=== PATIENT | female | born 1940 | race Caucasian/White ===

== ENCOUNTER 2016-10-20 16:24 | Emergency (ER) | payer OTHER, MEDICAID ==
[~2016-10-20] VITALS: Ht 154.9 cm; Wt 72.6 kg
[~2016-10-20 16:24] MED LIST: /CARB20TAB PO; /DULO30CA PO; /FENO48TA PO; AMLO2.5T PO; AMLO25TA PO; AMLO5TAB2 PO; AMOX500T2 PO; ASPI1TAB PO; ASPI81TA83 OR; ASPI81TA85 PO; BACTDSTA PO; CALC600T7 PO; CALCCAP4 PO; CALCCHW12 OR; CARB1TAB20 PO; CIPR500T3 PO; CIPR500T89 PO; CO Q-10 PO; COQ-1CAP PO; CRES5TAB OR; Co Q 10 OR; FISH1000 PO; FLAG500T PO; FORT600S SC; GABA-279 PO; GABA100C PO; HYDR25TA6 OR; LISI20TA5 OR; LISI20TA5 PO; NIAC500T4 PO; NIAC500T42 PO; NIAC500T5 PO; NORC5TAB PO; NORCOTAB PO; OMEP20CA3 PO; PLAV75TA2 PO; PLAV75TA38 PO; PRAV10TA PO; PROL60SO SC; SENO8.6T10 PO; TYLE650T25 PO; TYLENOL #3 PO; VITA-122 PO; VITA20008 PO; VITACAP31 PO; VITAMIN D 3 PO; ZETI10TA2 PO; potassium chloride PO; prolia; vitamin D3 OR
[2016-10-20 16:43] VITALS: BP 152/79
[2016-10-20] MEDS ORDERED: SPIR25TA2 PO (16:52)
[2016-10-20] MEDS ORDERED: CO Q100C10 PO (16:54)
[2016-10-20] MEDS ORDERED: TETANUS/DIPHTHERIA TOX ADSORB ADULT 0.5ML SYR/VIAL (90714) IM ONE (17:00)
[2016-10-20] MEDS ORDERED: LIDOCAINE 1% MDV 20ML VIAL SC ONE (17:30)
[2016-10-20] MEDS ORDERED: MORPHINE 2 MG/ML 1ML SYRINGE IV ONE (17:30)
--- NOTE | 2016-10-20 17:50 | REP ---
LEFT WRIST: Four views of the left wrist were performed. There is a comminuted intraarticular fracture of the distal end of the radius with dorsal angulation. No other acute fracture or dislocation is seen. IMPRESSION: Comminuted intraarticular fracture, distal end of the radius with dorsal angulation. Signed by Cortes Caballero MD 10/20/2016 08:38 P
--- NOTE | 2016-10-20 17:51 | REP ---
CT BRAIN WITHOUT IV CONTRAST: CT brain is performed without IV contrast. There is mild atrophy. There is no midline shift. No abnormal densities are seen. Caballero/white differentiation is well maintained. There is no acute hemorrhage. There is no extra-axial fluid collection. There is no evidence of skull fracture. There are vascular calcifications in the region of the carotid siphons. IMPRESSION: No acute intracranial hemorrhage or skull fracture. Signed by Cortes Caballero MD 10/20/2016 08:38 P
--- NOTE | 2016-10-20 17:59 | REP ---
CT CERVICAL SPINE WITHOUT IV CONTRAST: CT cervical spine is performed in the axial plane with sagittal and coronal reconstruction images. There is no compression fracture or malalignment with normal cervical lordosis. There is no prevertebral soft tissue swelling. There is moderate spurring of C5. There is mild to moderate disc space narrowing and subchondral sclerosis at C5-6. No hematoma is seen in the spinal canal. There is curvature convex to the right. IMPRESSION: Degenerative changes without fracture or dislocation. Signed by Cortes Caballero MD 10/20/2016 08:38 P
--- NOTE | 2016-10-20 18:10 | REP ---
CT MAXILLOFACIAL BONES: CT maxillofacial bones is performed in the axial plane with sagittal and coronal reconstruction images. There is no evidence of fracture of the visualized maxillofacial bones. Mastoid air cells are well aerated with no abnormal opacification. Paranasal sinuses demonstrate no significant abnormal opacification. No air fluid levels are seen. Vascular calcifications are seen in the carotid siphons. The globes appear intact. IMPRESSION: No evidence of maxillofacial bone fracture. Signed by Cortes Caballero MD 10/20/2016 08:38 P
--- NOTE | 2016-10-20 18:39 | REP ---
RIGHT KNEE, FIVE VIEWS: There is no evidence of an acute fracture, dislocation or intrinsic bone disease. There is soft-tissue edema lateral to the patella on the sunrise view. IMPRESSION: No fracture or dislocation. Signed by Cortes Caballero MD 10/20/2016 08:38 P
--- NOTE | 2016-10-20 18:41 | REP ---
LEFT FOREARM: AP and lateral views of the left forearm are performed. There is a comminuted intrarticular fracture of the distal end of the radius with dorsal angulation. No other fracture or dislocation is seen. IMPRESSION: Comminuted intraarticular fracture distal end of the radius with dorsal angulation. Signed by Cortes Caballero MD 10/20/2016 08:38 P
--- NOTE | 2016-10-20 18:56 | REP ---
LEFT WRIST: Four views of the left wrist are performed. Comminuted intraarticular fracture of the distal radius is again noted. The fracture is well aligned with reduction of the previously noted dorsal angulation. Overlying splint obscures underlying osseous detail. Signed by Cortes Caballero MD 10/20/2016 08:39 P
--- NOTE | 2016-10-21 08:47 | CR ---
DATE OF CONSULTATION: 10/20/2016 REASON FOR CONSULTATION: Left distal radius fracture. CHIEF COMPLAINT: Left wrist pain. HISTORY OF PRESENT ILLNESS: Yen Spence is a 76-year-old ctdap-eafd-dwkrolam female who sustained a ground-level fall onto her left upper extremity, resulting in immediate pain and deformity about the left wrist. She presented to the emergency department for evaluation. She also had a head laceration. She had a head CT that was negative for an intracranial bleed. The patient reported wrist pain and some mild knee pain on the right side. She had no other pain. She denied any numbness, tingling, or burning sensations about her left upper extremity and had no other complaints. PAST MEDICAL HISTORY: Significant for: 1. Hypertension. 2. Osteoporosis. 3. Hypercholesterolemia. MEDICATIONS: - amlodipine - Plavix - carbamazepine - spironolactone - Zetia - aspirin - coenzyme Q10 - calcium and vitamin D supplementation - fish oil supplementation - niacin - vitamin D3 ALLERGIES: To STATINS. PAST SURGICAL HISTORY: The patient has had: 1. Liver surgery. 2. Cataracts. 3. Hysterectomy. FAMILY HISTORY: Is noncontributory. SOCIAL HISTORY: The patient lives here in [place]. She does not smoke. She drinks socially. REVIEW OF SYSTEMS: CONSTITUTIONAL: No fevers, chills, or night sweats. CARDIOVASCULAR: No chest pain or palpitations. RESPIRATORY: No cough, wheeze, or shortness of breath. NEUROLOGIC: No headache, dizziness, numbness, tingling, or burning sensations. ENDOCRINE: No heat or cold intolerance. GASTROINTESTINAL (GI): No nausea, vomiting, or diarrhea. PHYSICAL EXAMINATION: VITAL SIGNS: Temperature 98.8, heart rate 85, blood pressure 152/79, respiratory rate 18, oxygen (O2) saturation 95% on room air. GENERAL: This is a well-nourished female. Appears her stated age. No acute distress. NEUROLOGIC: She is awake, alert, and oriented to person, place, and time. She has intact sensory and motor function in her left upper extremity, radial, median, and ulnar anterior interosseous nerve (AIN) and posterior interosseous nerve (pin) distributions. CARDIOVASCULAR: She has a 2+ radial pulse and brisk capillary refill to all digits of the left upper extremity. MUSCULOSKELETAL: LUE: A focused physical examination of the left wrist demonstrates obvious deformity about the left wrist with apex volar angulation of the left distal radius. She has painless range of motion about all digits of the metacarpophalangeal (MCP), proximal interphalangeal (PIP), and distal interphalangeal (DIP) joints. She has intact sensation to light touch distally about all of her fingers. Lower extremity: Examination of the lower extremities demonstrates no hip pain with a log roll bilaterally. There is ecchymosis about the medial aspect of the right knee. Right knee has a stable ligamentous examination. She has full active knee range of motion from 0-120 degrees. RADIOGRAPHS: Plain radiographs of the left radius, forearm, and right knee were reviewed. Left wrist and forearm views demonstrate a comminuted displaced intraarticular distal radius fracture with apex volar angulation. The right knee demonstrates no acute osseous abnormalities. ASSESSMENT: This is a 76-year-old female with a left closed distal radius fracture and a right knee contusion. PLAN: I discussed with the patient the risks, benefits, indications, and alternatives of closed reduction versus acute ORIF were discussed. Given the patient's age and degree of displacement, this is an unstable fracture pattern that will likely redisplace after reduction. However, it is worthwhile in my opinion to attempt a closed reduction with splinting to potentially avoid the necessity for ORIF. Procedure note: The patient provided a verbal informed consent to a closed reduction of the left wrist under hematoma block. Approximately 4 mL of 1% lidocaine without epinehrine was injected into the left wrist fracture hematoma. Patient was placed in finger traction and a closed reduction was obtained using mini c-arm fluoroscopic guidance. A well padded sugar tong splint was applied. Post reduction radiographs were reviewed demonstrating sabianism of anatomic radial height and inclination, with sabianism of tilt to neutral. I counseled her to followup in 1 week for a repeat radiograph in her splint. Patient counseled that the knee contusion will be self limiting and no bony or ligamentous damage was identified. The patient expressed understanding and agreed with the plan. All questions were answered. PATRICIA
== END 2016-10-20 20:12 | disposition home or self-care (01) ==
LOC: EDBD 16:24 → M ED 19:29
DX: S52.572A Other intraarticular fracture of lower end of left radius, initial encounter for closed fracture (principal); S80.01XA Contusion of right knee, initial encounter; S01.81XA Laceration without foreign body of other part of head, initial encounter; W01.198A Fall on same level from slipping, tripping and stumbling with subsequent striking against other object, initial encounter; Y92.89 Other specified places as the place of occurrence of the external cause; Y93.89 Activity, other specified; Y99.8 Other external cause status; I10 Essential (primary) hypertension; M81.0 Age-related osteoporosis without current pathological fracture; E78.00 Pure hypercholesterolemia, unspecified; Z79.899 Other long term (current) drug therapy; Z79.02 Long term (current) use of antithrombotics/antiplatelets; Z79.82 Long term (current) use of aspirin; Z79.2 Long term (current) use of antibiotics; Z88.8 Allergy status to other drugs, medicaments and biological substances

== ENCOUNTER 2019-06-16 06:37 | Inpatient (IN) | payer MEDICARE, MEDICAID ==
[~2019-06-16 06:37] MED LIST changes: -/CARB20TAB PO; -/DULO30CA PO; -/FENO48TA PO; -AMLO5TAB2 PO; +AMLO5TAB6 PO; -ASPI1TAB PO; +ASPI81TA26 PO; -BACTDSTA PO; +CIPR-249 PO; -CIPR500T89 PO; +CO Q100C10 PO; +CYMB1CAP5 PO; +GABA-1171 PO; -GABA-279 PO; +HYDR-3715 PO; +NORC1TAB7 PO; -NORC5TAB PO; -NORCOTAB PO; +PLAV1TAB2 PO; -PLAV75TA38 PO; -PRAV10TA PO; +PRAV10TA4 PO; +SPIR-10 PO; +SULF1TAB23 PO; +TRIC1TAB PO; +ZETI10TA16 PO; -ZETI10TA2 PO
[2019-06-16] MEDS ORDERED: SPIRONOLACTONE 25 MG TAB PO STA (06:50)
[2019-06-16] MEDS ORDERED: amLODIPine 5 MG TAB PO ONE (07:00)
[2019-06-16 07:16] LABS: INR 0.91; PROTHROMBIN TIME 11.9 SECONDS (11.8-14.0)
--- NOTE | 2019-06-16 07:21 | REPVR ---
PROCEDURE INFORMATION: Exam: CT Head Without Contrast Exam date and time: 06/16/2019 6:49 AM Clinical history: 79 years old, female; Other: left sided facial pain; Additional Info: CVA - Nursing interventions must not delay CT TECHNIQUE: Imaging protocol: Computed tomography of the head without contrast. Radiation optimization: All CT scans at this facility use at least one of these dose optimization techniques: automated exposure control; mA and/or kV adjustment per patient size (includes targeted exams where dose is matched to clinical indication); or iterative reconstruction. Other technique: STROKE PROTOCOL was implemented. COMPARISON: CT Head without contrast 10/20/2016 5:10 PM FINDINGS: Brain: No hemorrhage. No significant white matter disease. No edema. Cortical bang-white matter differentiation is preserved. 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 Insular cortex is not well seen, however, this appears to be symmetric and unchanged from prior. Ventricles: Normal. No ventriculomegaly. Bones/joints: Unremarkable. No acute fracture. Sinuses: Visualized sinuses are unremarkable. No fluid levels. Mastoid air cells: Visualized mastoid air cells are well aerated. Soft tissues: Unremarkable. IMPRESSION: 1. No cerebral changes of acute infarct on non-contrast CT at this time. 2. 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 Unchanged from prior. ASSESSMENT: ASPECTS ([place] Stroke Program Early CT Score) is 10. Electronically signed by: Ceci Esteban On 06/16/2019 07:20:52 AM
[2019-06-16 07:33] LABS: BASO % 0.4 % (0.0-1.0); EOS # 0.1 10^3/uL (0.0-0.5); EOS % 1.2 % (0.0-3.0); HEMATOCRIT 42.8 % (36.0-47.0); HEMOGLOBIN 14.2 g/dl (12.0-15.5); LYMPH # 0.7 10^3/uL (1.5-5.0); LYMPH % 8.7 % (24.0-44.0); MEAN CORPUSCULAR HEMOGLOBIN 31.1 pg (27.0-33.0); MEAN CORPUSCULAR HGB CONC 33.2 g/dl (32.0-36.5); MEAN CORPUSCULAR VOLUME 93.7 fl (80.0-96.0); MONO # 0.4 10^3/uL (0.0-0.8); MONO % 5.1 % (0.0-5.0); NEUTROPHILS # 6.4 10^3/uL (1.5-8.5); NEUTROPHILS % 84.2 % (36.0-66.0); PLATELET COUNT, AUTOMATED 211 10^3/uL (150-450); RED BLOOD COUNT 4.57 10^6/uL (4.00-5.40); WHITE BLOOD COUNT 7.6 10^3/uL (4.0-10.0)
[2019-06-16 07:36] LABS: BLOOD UREA NITROGEN 16 MG/DL (7-18); CALCIUM LEVEL 8.9 MG/DL (8.8-10.2); CARBON DIOXIDE LEVEL 29 MEQ/L (21-32); CHLORIDE LEVEL 106 MEQ/L (98-107); CK-MB VALUE MASS < 1.0 NG/ML (<3.6); CPK CREATINE PHOSPHOKINASE 60 U/L (26-192); CREATININE FOR GFR 1.17 MG/DL (0.55-1.30); GLOMERULAR FILTRATION RATE 47.3 (>32); GLUCOSE, FASTING 99 MG/DL (70-100); MB/CK RELATIVE INDEX 1.67 (< OR =4); POTASSIUM SERUM 4.5 MEQ/L (3.5-5.1); SODIUM LEVEL 141 MEQ/L (136-145); TROPONIN I < 0.02 NG/ML (< 0.10)
[2019-06-16] MEDS ORDERED: AMLO25TA PO (07:49)
[2019-06-16] MEDS ORDERED: FISH1000 PO (07:49)
[2019-06-16] MEDS ORDERED: PHILCAP4 PO (07:50)
--- NOTE | 2019-06-16 08:59 | REP ---
MRI brain: 06/16/2019. Indication: Stroke. Comparison: New new 04/21/2012. Technique: Multiplanar short and long TR sequences of the brain were performed without IV Gadolinium. Findings: No significant areas of restricted diffusion are present. There is no intracranial mass effect or hydrocephalous. Punctate areas of decreased gradient signal are present within the anterior superior left frontal region most consistent with chronic blood products or calcifications. There are a few scattered foci of elevated CT signal throughout the cerebral hemisphere white matter. Small focus of elevated CT signal is again noted within the left occipital calvarium most consistent with a small hemangioma. Stable. Impression: No acute intracranial process. Sequelae of chronic microangiopathic ischemic disease. Anterior superior left frontal region chronic blood products or calcifications. Electronically Signed by Marvin Suazo DO 06/16/2019 08:50 A
[2019-06-16] MEDS ORDERED: SPIRONOLACTONE 25 MG TAB PO SCH (09:00)
--- NOTE | 2019-06-16 09:08 | REP ---
Intracranial MRA: 06/16/2019. Indication: Stroke. Comparison: New 04/21/2012. Technique: 3-D [id number]-[id number] imaging of the intracranial circulation were performed. Findings: There is no intracranial high-grade stenosis, vessel occlusion, aneurysm or AVM. New Impression: No high-grade stenosis or vessel occlusion. Electronically Signed by Marvin Suazo DO 06/16/2019 09:00 A
--- NOTE | 2019-06-16 11:12 | HPEPDOC ---
[facility] Medical History & Physical Date of Admission Jun 16, 2019 Date of Service: Jun 16, 2019 Attending Physician: ELLIS ASTORGA MD History and Physical CHIEF COMPLAINT: Right arm tremor, left arm numbness and tingling HISTORY OF PRESENT ILLNESS: 79-year-old female with past medical history of h ypertension, TIA, hyperlipidemia, presents from home with symptoms concerning for TIA/stroke. She reports waking up without any symptoms, but developed right arm tremor and left arm numbness/tingling shortly after, symptoms lasted for about an hour and a half and resolved prior to her arrival into the emergency room. She has remained symptom free since, currently resting in bed without any complaints, CT head in the ED was negative for any acute stroke. She underwent MRI and MRA in the ED as well, negative for acute stroke as well. She is already taking aspirin and Plavix at home, unsure why, reportedly for her heart, denies having an IL or stent placement in the past. She reports previous TIA about 3 years ago. She denies any headache, vision changes, shortness of breath, chest pain, diarrhea and abdominal pain at this time. 10 point review of system was negative except for above PAST MEDICAL HISTORY: 1. Hypertension. 2., Hyperlipidemia. 3. TIA. 4. Cervical cancer, liver metastases. PAST SURGICAL HISTORY: 1. Hysterectomy. 2. oophorectomy. 3. Hernia repair. SOCIAL HISTORY: Ex-smoker, quit 40-50 years ago. Denies alcohol use. Denies drug use FAMILY HISTORY: No family history of malignancy ALLERGIES: Please see below. HOME MEDICATIONS: Please see below. PHYSICAL EXAMINATION: VITAL SIGNS: Please see below. GENERAL: No distress, frail HEENT: Normocephalic, atraumatic, moist mucous membranes NECK: Supple CARDIOVASCULAR EXAMINATION: S1, S2, no murmurs RESPIRATORY EXAMINATION: Clear to auscultation, no wheezing ABDOMINAL EXAMINATION: Soft, nontender, nondistended, positive bowel sounds EXTREMITIES: Range of motion intact SKIN: No rash NEUROLOGICAL EXAMINATION: Alert and oriented 3, no focal deficits PSYCHIATRIC EXAMINATION: Calm and cooperative LABORATORY DATA: See below. IMAGING: CT and MRI negative for acute stroke MICROBIOLOGY: Please see below. ASSESSMENT: 79-year-old female with past medical history of TIA, hypertension, hyperlipidemia is being admitted for TIA.. . PLAN: 1. TIA. CT and MRI negative for acute stroke, MRA head is negative, TTE and carotid Dopplers pending. Continue aspirin, Plavix and Zetia PT/OT eval 2. Hypertension. Continue Norvasc and spironolactone 3. Hyperlipidemia. Continue Zetia 4. Cervical cancer. Along with liver metastasis. Status post hysterectomy and surgical removal of metastasis DVT prophylaxis: Heparin subcutaneous GI prophylaxis: Not needed Vital Signs Vital Signs Date Time Temp Pulse Resp B/P (MAP) Pulse Ox O2 Delivery O2 Flow Rate FiO2 06/16/19 10:00 151/79 (103) 06/16/19 09:52 79 20 95 Room Air 06/16/19 06:47 97.6 Laboratory Data Labs 24H Laboratory Tests 2 06/16/19 06:54: Bedside Glucose (Misc Panel) 95 06/16/19 06:57: Prothrombin Time 11.9, Prothromb Time International Ratio 0.91, Anion Gap 6L, Glomerular Filtration Rate 47.3, Calcium Level 8.9, Total Creatine Kinase 60, Creatine Kinase MB < 1.0, Creatine Kinase MB Relative Index 1.67, Troponin I < 0.02 06/16/19 07:15: Immature Granulocyte % (Auto) 0.4, Neutrophils (%) (Auto) 84.2H, Lymphocytes (%) (Auto) 8.7L, Monocytes (%) (Auto) 5.1H, Eosinophils (%) (Auto) 1.2, Basophils (%) (Auto) 0.4, Neutrophils # (Auto) 6.4, Lymphocytes # (Auto) 0.7L, Monocytes # (Auto) 0.4, Eosinophils # (Auto) 0.1, Basophils # (Auto) 0.0, Nucleated Red Blood Cells % (auto) 0.0 CBC/BMP Laboratory Tests 06/16/19 06:57 06/16/19 07:15 Home Medications Scheduled Amlodipine Besylate (Amlodipine Besylate) 2.5 Mg Tablet, 2.5 MG PO DAILY Aspirin (Aspirin EC) 81 Mg Tab, 81 MG PO DAILY Calcium Carbonate/Vitamin D3 (Calcium 600-Vit D3 200 Tablet) 1 Tab Tab, 1 TAB PO BID Carbamazepine (Carbamazepine) 200 Mg Tab, 200 MG PO QHS Cholecalciferol (Vitamin D3) (Vitamin D3) 1,000 Unit Tab, 4,000 UNIT PO QHS Clopidogrel Bisulfate (Plavix) 75 Mg Tab, 75 MG PO DAILY Denosumab Injection (Prolia) 60 Mg/Ml Joelle, 60 MG SC ASDIRECTED EVERY 6 MONTHS, DUE JUNE 2019 Ezetimibe (Zetia) 10 Mg Tab, 10 MG PO DAILY Niacin (Niacin) 500 Mg Tab, 1,500 MG PO QHS [place]-3 Fatty Acids/Fish Oil (Fish Oil 1,000 mg Capsule) 1 Each Capsule, 1,000 MG PO BID Spironolactone (Spironolactone) 25 Mg Tab, 25 MG PO DAILY Ubidecarenone/Vit E Acet (Co Q-10 100 mg Softgel) 100 Mg Cap, 100 MG PO DAILY l Gasseri/B Bifidum/B Longum ([employer] Capsule) 1 Each Capsule, 1 CAP PO DAILY Allergies Coded Allergies: lisinopril (Verified Allergy, Intermediate, LUMP IN THROAT, 06/16/19) losartan (Verified Allergy, Intermediate, UNKNOWN REACTION, 06/16/19) rosuvastatin (Verified Adverse Reaction, Intermediate, LEG CRAMPS, 06/16/19) A-FIB/CHADSVASC A-FIB History Current/History of A-Fib/PAF?: No ELLIS ASTORGA MD Jun 16, 2019 11:12
[2019-06-16] MEDS: ASPIRIN 81 MG ENTERIC TAB PO SCH (11:49)
[2019-06-16] MEDS: CLOPIDOGREL 75 MG TAB PO SCH (11:49)
[2019-06-16 12:31] VITALS: BP 162/82
[2019-06-16] MEDS: EZETIMIBE 10 MG TAB (ZETIA) PO SCH (14:41)
--- NOTE | 2019-06-16 15:53 | REP ---
Clinical: Acute cerebrovascular accident . Comparison: 07/24/2015 . Findings: The mediastinum and cardiac silhouette are stable and within normal limits for portable technique. The lung yuen demonstrate chronic-appearing changes without acute consolidation, effusion, or pneumothorax. Skeletal structures are intact. Impression: No acute cardiopulmonary process appreciated. Electronically Signed by Preston Christianson MD 06/16/2019 03:44 P
--- NOTE | 2019-06-16 15:54 | REP ---
CAROTID ULTRASOUND: Real-time ultrasound evaluation and duplex Doppler interrogation of the extracranial carotid vasculature is performed. There is mild plaquing and narrowing in both carotid bulbs extending into the internal and external carotid arteries. Luminal narrowing is less than 50%. There is no evidence of hemodynamically significant stenosis of either internal carotid artery. Normal flow velocities are seen. The vertebral arteries demonstrate normal direction of flow. RIGHT LEFT Peak systolic velocity ICA 87.2 cm/s 75.9 cm/s End diastolic velocity ICA 17.1 cm/s 16.5 cm/s Peak systolic velocity CCA 141 cm/s 149 cm/s Peak systolic velocity ECA 107 cm/s 62.3 cm/s ICA/CCA ratio 0.62 0.51 IMPRESSION: Bilateral luminal narrowing of the internal carotid arteries less than 50%. No evidence of hemodynamically significant stenosis. Electronically Signed by Cortes Caballero MD 06/16/2019 03:46 P
--- NOTE | 2019-06-16 20:18 | ECGEPIP ---
[facility] - ED Test Date: 2019-06-16 Pat Name: KEVYN MOORE Department: Room: - Gender: Female Manager Cancer: thierno : 1940 Requested By: Mercedes Banks Order Number: [id number] Reading MD: Javi Gonzalez Measurements Intervals [place] Rate: 82 P: 49 NM: 139 QRS: 17 QRSD: 77 T: 22 QT: 341 QTc: 400 Interpretive Statements SINUS RHYTHM POSSIBLE LEFT ATRIAL ENLARGEMENT NONSPECIFIC ST T WAVE CHANGES CW 07/24/[address] T WAVE CHANGES Electronically Signed on 06-16-2019 20:17:46 EDT by Javi Gonzalez
[2019-06-16] MEDS ORDERED: carBAMazepine 200 MG TAB PO SCH (21:00)
[2019-06-16] MEDS ORDERED: VITAMIN D 1,000 INTERNATIONAL UNITS TABLET PO SCH (21:00)
[2019-06-16] MEDS: HEPARIN SOD (PORCINE) 5000 UNITS/ML VIAL SC SCH (21:04)
[2019-06-16 22:00] VITALS: BP 135/62
--- NOTE | 2019-06-16 22:53 | ECHO ---
DATE OF PROCEDURE: 06/16/2019 DATE OF : 1940 AGE: 79 REFERRING PROVIDER: Dr. Mary Johnston PATIENT LOCATION: Room 4208 REASON FOR THE STUDY: Transient ischemic attack (TIA). 2D MEASUREMENT: IVS: 0.9 cm LV: 4.4 cm LVPW: 0.8 cm LA: 3.2 cm Aorta: 2.4 cm IVC: 1.1 cm DOPPLER MEASUREMENTS: Peak velocity across the aortic valve: 1.4 meters per second Peak velocity across the LVOT: 1.5 meters per second Mitral E: 0.75, mitral A: 0.97 with a ratio of 0.8 Maximum tricuspid valve velocity: 2.6 meters per second 2D COMMENTS: 1. Normal left ventricular size, wall thickness, and normal global left ventricular systolic function. The estimated ventricular systolic ejection fraction is 65-70%. 2. Normal left atrium. Normal right atrium and right ventricle. 3. The atrial septum appeared to be normal without evidence of defect or shunt. 4. Normal aortic root. 5. Trace pericardial effusion noted in limited views, no evidence of cardiac tamponade. 6. Mildly calcified aortic valve with normal leaflet excursion. Mildly calcified mitral annulus with normal anterior mitral valve leaflet motion. Normal tricuspid valve and pulmonic valve. The proximal pulmonary artery branches were not well visualized. 7. The inferior vena cava was normal in size, central venous pressure might be normal. DOPPLER: It detects trace aortic regurgitation, mild mitral regurgitation, mild tricuspid regurgitation, and trace pulmonic regurgitation. The calculated pulmonary artery systolic pressure varies between 30-40 mmHg. Abnormal relaxation pattern was noted across the mitral valve leaflets as well as the mitral valve annulus consistent with features of grade 1 left ventricular diastolic dysfunction. IMPRESSION: 1. Normal global left ventricular systolic function. There are some features of left ventricular diastolic dysfunction manifested by abnormal relaxation. 2. Aortic valve sclerosis with trace aortic regurgitation but no aortic stenosis. 3. Mitral annulus calcification with mild mitral regurgitation. 4. Mild tricuspid regurgitation with mild pulmonary hypertension. 5. Trace pericardial effusion noted, no evidence of cardiac tamponade.
[2019-06-17 05:58] LABS: HEMATOCRIT 41.3 % (36.0-47.0); HEMOGLOBIN 13.5 g/dl (12.0-15.5); MEAN CORPUSCULAR HEMOGLOBIN 30.3 pg (27.0-33.0); MEAN CORPUSCULAR HGB CONC 32.7 g/dl (32.0-36.5); MEAN CORPUSCULAR VOLUME 92.8 fl (80.0-96.0); PLATELET COUNT, AUTOMATED 208 10^3/uL (150-450); RED BLOOD COUNT 4.45 10^6/uL (4.00-5.40); WHITE BLOOD COUNT 5.2 10^3/uL (4.0-10.0)
[2019-06-17 06:00] VITALS: BP 155/82
[2019-06-17 06:31] LABS: ALBUMIN 2.7 GM/DL (3.2-5.2); BILIRUBIN,TOTAL 0.3 MG/DL (0.2-1.0); CALCIUM LEVEL 9.1 MG/DL (8.8-10.2); CREATININE FOR GFR 0.97 MG/DL (0.55-1.30); GLOMERULAR FILTRATION RATE 58.7 (>32); TOTAL PROTEIN 6.2 GM/DL (6.4-8.2)
[2019-06-17 06:32] LABS: MAGNESIUM LEVEL 2.1 MG/DL (1.8-2.4)
[2019-06-17 08:17] VITALS: BP 152/81
[2019-06-17 08:21] VITALS: BP 152/88
[2019-06-17] MEDS: ASPIRIN 81 MG ENTERIC TAB PO SCH (08:21)
[2019-06-17] MEDS: CLOPIDOGREL 75 MG TAB PO SCH (08:22)
[2019-06-17] MEDS: EZETIMIBE 10 MG TAB (ZETIA) PO SCH (08:22)
[2019-06-17] MEDS: HEPARIN SOD (PORCINE) 5000 UNITS/ML VIAL SC SCH (08:22)
[2019-06-17] MEDS ORDERED: SPIRONOLACTONE 25 MG TAB PO SCH (09:00)
[2019-06-17] MEDS ORDERED: amLODIPine 5 MG TAB PO SCH (09:00)
[2019-06-17] MEDS ORDERED: AMLO5TAB6 PO (11:01)
--- NOTE | 2019-06-17 11:14 | DS.PDOC ---
Discharge Summary General Date of Admission Jun 16, 2019 at 10:54 Date of Discharge 06/17/2019 Attending Physician: ELLIS ASTORGA MD Discharge Summary PROCEDURES PERFORMED DURING STAY: None. ADMITTING DIAGNOSES: 1. TIA. DISCHARGE DIAGNOSES: 1. TIA. COMPLICATIONS/CHIEF COMPLAINT: Hypertension,Hypercholesteremia,Tia. HISTORY OF PRESENT ILLNESS: 79-year-old female with past medical history of hypertension, hyperlipidemia, was admitted for TIA. She presented with right arm tremor and left arm numbness and tingling which resolved prior to her arrival in the emergency room. She had no recurrence of symptoms, CT head was negative in the ED. Follow-up workup for stroke was negative including MRI, MRA, carotid Dopplers and an echocardiogram. Patient was evaluated by physical therapy, clear for discharge home without any services. Patient has no other symptoms at this time, patient is here to be stable for discharge. Patient did have elevated blood pressure during her stay, Norvasc dose was increased from 2.5 mg daily to 5 mg daily.. HOSPITAL COURSE: As above. DISCHARGE MEDICATIONS: Please see below. ALLERGIES: Please see below. PHYSICAL EXAMINATION: VITAL SIGNS: Please see below. GENERAL: No distress HEENT: Normocephalic, atraumatic, moist mucous membranes NECK: Supple CARDIOVASCULAR EXAMINATION: S1, S2, no murmurs RESPIRATORY EXAMINATION: Clear to auscultation, no wheezing ABDOMINAL EXAMINATION: Soft, nontender, nondistended, positive bowel sounds EXTREMITIES: Range of motion intact SKIN: No rash NEUROLOGICAL EXAMINATION: Alert and oriented 3, no focal deficits PSYCHIATRIC EXAMINATION: Calm and cooperative LABORATORY DATA: Please see below. IMAGING: CT, MRI and MRA negative for any acute pathology PROGNOSIS: Fair ACTIVITY: As tolerated. DIET: Cardiac DISCHARGE PLAN: She does follow with neurologist and PCP in 1-2 weeks DISPOSITION: . DISCHARGE INSTRUCTIONS: 1. As above. DISCHARGE CONDITION: Stable. TIME SPENT ON DISCHARGE: Greater than 35 minutes. Vital Signs/I&Os Vital Signs Date Time Temp Pulse Resp B/P (MAP) Pulse Ox O2 Delivery O2 Flow Rate FiO2 06/17/19 08:21 88 152/88 06/17/19 06:00 98.0 16 95 Room Air I&O- Last 24 Hours up to 6 AM 06/17/19 06:00 Intake Total 2150 ml Output Total 250 ml Balance 1900 ml Laboratory Data Labs 24H Laboratory Tests 2 06/17/19 05:27: Nucleated Red Blood Cells % (auto) 0.0, Anion Gap 7L, Glomerular Filtration Rate 58.7, Calcium Level 9.1, Magnesium Level 2.1, Total Bilirubin 0.3, Aspartate Amino Transf (AST/SGOT) 12, Alanine Aminotransferase (ALT/SGPT) 14, Alkaline Phosphatase 63, Total Protein 6.2L, Albumin 2.7L, Albumin/Globulin Ratio 0.77L CBC/BMP Laboratory Tests 06/17/19 05:27 Discharge Medications Scheduled Amlodipine Besylate (Amlodipine Besylate) 5 Mg Tablet, 5 MG PO DAILY Aspirin (Aspirin EC) 81 Mg Tab, 81 MG PO DAILY, (Reported) Calcium Carbonate/Vitamin D3 (Calcium 600-Vit D3 200 Tablet) 1 Tab Tab, 1 TAB PO BID, (Reported) Carbamazepine (Carbamazepine) 200 Mg Tab, 200 MG PO QHS, (Reported) Cholecalciferol (Vitamin D3) (Vitamin D3) 1,000 Unit Tab, 4,000 UNIT PO QHS, (Reported) Clopidogrel Bisulfate (Plavix) 75 Mg Tab, 75 MG PO DAILY, (Reported) Denosumab Injection (Prolia) 60 Mg/Ml Joelle, 60 MG SC ASDIRECTED, (Reported) EVERY 6 MONTHS, DUE JUNE 2019 Ezetimibe (Zetia) 10 Mg Tab, 10 MG PO DAILY, (Reported) Niacin (Niacin) 500 Mg Tab, 1,500 MG PO QHS, (Reported) [place]-3 Fatty Acids/Fish Oil (Fish Oil 1,000 mg Capsule) 1 Each Capsule, 1,000 MG PO BID, (Reported) Spironolactone (Spironolactone) 25 Mg Tab, 25 MG PO DAILY, (Reported) Ubidecarenone/Vit E Acet (Co Q-10 100 mg Softgel) 100 Mg Cap, 100 MG PO DAILY, (Reported) l [place]/B Bifidum/B Longum (Databraid Capsule) 1 Each Capsule, 1 CAP PO DAILY, (Reported) Allergies Coded Allergies: lisinopril (Verified Allergy, Intermediate, LUMP IN THROAT, 06/16/19) losartan (Verified Allergy, Intermediate, UNKNOWN REACTION, 06/16/19) rosuvastatin (Verified Adverse Reaction, Intermediate, LEG CRAMPS, 06/16/19) ELLIS ASTORGA MD Jun 17, 2019 11:14
[2019-06-17] MEDS ORDERED: FLUBLOK(EGG FREE)(QUAD)INFLUENZA VACC 0.5ML SYRINGE (90682)18YRS&OLDER IM ONE (12:00)
== END 2019-06-17 12:32 | disposition home or self-care (01) | DRG 69 ==
LOC: M ED 06:37 → M ED INP 10:54 → M MSPAV 12:23
PROVIDERS: ADMIT Internal Medicine; ATTEND Internal Medicine
DX: G45.9 Transient cerebral ischemic attack, unspecified (principal); C78.7 Secondary malignant neoplasm of liver and intrahepatic bile duct; I10 Essential (primary) hypertension; E78.5 Hyperlipidemia, unspecified; Z79.82 Long term (current) use of aspirin; Z79.899 Other long term (current) drug therapy; Z88.8 Allergy status to other drugs, medicaments and biological substances; C53.9 Malignant neoplasm of cervix uteri, unspecified

== ENCOUNTER 2019-06-19 09:49 | Emergency (ER) | payer MEDICARE, MEDICAID ==
[~2019-06-19] VITALS: Ht 154.9 cm; Wt 77.0 kg
[~2019-06-19 09:49] MED LIST changes: +PHILCAP4 PO
--- NOTE | 2019-06-19 10:34 | REP ---
CT brain: 06/19/2019. Indication: Paresthesia. Stroke. Comparison: 06/16/2019. Technique: Unenhanced axial CT images of the brain were obtained from skull base to vertex. Findings: There is no acute intracranial hemorrhage, acute cortical infarction, mass effect or hydrocephalous. Small well-defined area of low attenuation within the posterior right basal ganglia is redemonstrated and likely represents an anterior choroidal fissure/glial cyst or prominent Virchow-Gustavo cyst. Patchy areas of white matter attenuation are redemonstrated most consistent with sequelae of chronic small vessel disease. Impression: No acute hemorrhage. No acute infarction identified. Electronically Signed by Marvin Suazo DO 06/19/2019 10:25 A
[2019-06-19 10:41] LABS: BASO % 0.3 % (0.0-1.0); EOS # 0.1 10^3/uL (0.0-0.5); EOS % 1.6 % (0.0-3.0); HEMATOCRIT 43.2 % (36.0-47.0); HEMOGLOBIN 14.1 g/dl (12.0-15.5); LYMPH # 0.8 10^3/uL (1.5-5.0); LYMPH % 13.7 % (24.0-44.0); MEAN CORPUSCULAR HEMOGLOBIN 30.1 pg (27.0-33.0); MEAN CORPUSCULAR HGB CONC 32.6 g/dl (32.0-36.5); MEAN CORPUSCULAR VOLUME 92.1 fl (80.0-96.0); MONO # 0.4 10^3/uL (0.0-0.8); MONO % 7.1 % (0.0-5.0); NEUTROPHILS # 4.4 10^3/uL (1.5-8.5); PLATELET COUNT, AUTOMATED 236 10^3/uL (150-450); RED BLOOD COUNT 4.69 10^6/uL (4.00-5.40); WHITE BLOOD COUNT 5.8 10^3/uL (4.0-10.0)
[2019-06-19 10:53] LABS: PROTHROMBIN TIME 12.9 SECONDS (11.8-14.0)
--- NOTE | 2019-06-19 11:06 | REP ---
Clinical: Chest pain. Comparison: 06/16/2019. Findings: Subtle new right basilar atelectasis and possible small pleural reaction. Mediastinum and cardiac silhouette stable. No pneumothorax. Hiatal hernia again noted. Skeletal structures intact. Impression: 1. New right basilar atelectasis and pleural reaction. Electronically Signed by Preston Christianson MD 06/19/2019 10:58 A
[2019-06-19 11:19] LABS: ALBUMIN 3.2 GM/DL (3.2-5.2); ALT/SGPT 18 U/L (12-78); BILIRUBIN,DIRECT < 0.1 MG/DL (0.0-0.2); BILIRUBIN,TOTAL 0.3 MG/DL (0.2-1.0); BLOOD UREA NITROGEN 16 MG/DL (7-18); CALCIUM LEVEL 9.2 MG/DL (8.8-10.2); CARBON DIOXIDE LEVEL 30 MEQ/L (21-32); CHLORIDE LEVEL 105 MEQ/L (98-107); CK-MB VALUE MASS < 1.0 NG/ML (<3.6); CPK CREATINE PHOSPHOKINASE 69 U/L (26-192); CREATININE FOR GFR 1.09 MG/DL (0.55-1.30); GLOMERULAR FILTRATION RATE 51.3 (>32); GLUCOSE, FASTING 103 MG/DL (70-100); LIPASE 84 U/L (73-393); MB/CK RELATIVE INDEX 1.45 (< OR =4); NT-PRO BNP 85 PG/ML (<450); POTASSIUM SERUM 4.7 MEQ/L (3.5-5.1); SODIUM LEVEL 139 MEQ/L (136-145); TOTAL PROTEIN 6.8 GM/DL (6.4-8.2); TROPONIN I < 0.02 NG/ML (< 0.10)
[2019-06-19] MEDS ORDERED: ISOVUE-370 76% 100ML VIAL (Q9967) As Ordered ONE (12:45)
[2019-06-19 13:15] VITALS: BP 174/86
--- NOTE | 2019-06-19 13:33 | REP ---
Clinical: Pleuritic chest pain . Technique: Axial contrast enhanced images from the thoracic inlet to the upper abdomen using 100 ml Isovue 370 intravenous contrast material with multiplanar re-formations. Findings: Satisfactory enhancement of the pulmonary vasculature is achieved and no filling defects are identified to suggest pulmonary embolus. Mediastinum demonstrates atherosclerotic changes to the thoracic aorta without aneurysm or dissection. Cardiomegaly noted without pericardial effusion. Lung yuen demonstrate chronic COPD/emphysematous changes with scattered scarring. No consolidation, effusion, or pneumothorax. Hiatal hernia at the gastroesophageal junction identified. No evidence for adenopathy. Musculoskeletal structures demonstrate age-related degenerative changes and thoracic vertebral body hemangioma. Impression: No evidence for pulmonary embolus. No acute mediastinal or pleural parenchymal process. Chronic COPD/emphysematous disease with scattered scarring. Electronically Signed by Preston Christianson MD 06/19/2019 01:24 P
--- NOTE | 2019-06-19 21:40 | ECGEPIP ---
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
== END 2019-06-19 13:15 | disposition home or self-care (01) ==
LOC: M ED 09:49
DX: R20.2 Paresthesia of skin (principal); R07.9 Chest pain, unspecified; J44.9 Chronic obstructive pulmonary disease, unspecified; I10 Essential (primary) hypertension; Z86.73 Personal history of transient ischemic attack (TIA), and cerebral infarction without residual deficits; E78.49 Other hyperlipidemia; Z79.02 Long term (current) use of antithrombotics/antiplatelets; Z88.8 Allergy status to other drugs, medicaments and biological substances; Z87.891 Personal history of nicotine dependence
CPT/HCPCS: 70450; 71045; 71275; 80048; 80076; 82550; 82553; 83690; 83880; 84443; 84484; 85025; 85610; 93005; 93041; 94760; 99285; Q9967

== ENCOUNTER → 2019-06-22 | Outpatient (REF) | payer MEDICARE, MEDICAID | LOC: M LAB REF 09:54 | DX: R31.9 Hematuria, unspecified (principal) ==

== ENCOUNTER → 2019-07-10 | Outpatient (CLI) | payer MEDICARE, MEDICAID ==
--- NOTE | 2019-07-10 09:42 | REP ---
Left lower extremity Duplex Doppler venous ultrasound: Real time compression and duplex Doppler interrogation of the left lower extremity deep venous system is performed. The left common femoral, superficial femoral and popliteal veins are fully compressible with transducer pressure and demonstrate normal spontaneous and phasic flow, without evidence of deep venous thrombosis. Impression: No evidence of deep venous thrombosis of the left lower extremity femoral popliteal venous system. Electronically Signed by Cortes Caballero MD 07/10/2019 09:34 A
== END ==
LOC: M RAD 09:06
PROVIDERS: ATTEND Physician Assistant
DX: M79.605 Pain in left leg (principal)

== ENCOUNTER 2020-06-03 07:43 | Inpatient (IN) | payer MEDICARE, MEDICAID ==
[~2020-06-03] VITALS: Ht 154.9 cm; Wt 74.3 kg
[~2020-06-03 07:43] MED LIST changes: +AMLO1TAB24 PO; -AMLO5TAB6 PO; -ASPI81TA85 PO; +ASPI81TA86 PO; +CALC-212 PO; -CALC600T7 PO; +NIAC500T29 PO; -NIAC500T4 PO
[2020-06-03 08:24] LABS: VENOUS BASE EXCESS 5.8 (-2.0-2.0); VENOUS HCO3 29.8 MEQ/L (23.0-27.0); VENOUS O2 SATURATION 99.5 % (60.0-80.0); VENOUS PARTIAL PRESSURE CO2 40.9 mmHg (38.0-50.0); VENOUS PARTIAL PRESSURE O2 173.9 mmHg (30.0-50.0); VENOUS STANDARD HCO3 29.7 MEQ/L
[2020-06-03 08:29] LABS: BASO % 0.3 % (0.0-1.0); EOS % 0.3 % (0.0-3.0); HEMATOCRIT 42.5 % (36.0-47.0); HEMOGLOBIN 14.6 g/dl (12.0-15.5); LYMPH # 0.6 10^3/uL (1.5-5.0); LYMPH % 5.7 % (24.0-44.0); MEAN CORPUSCULAR HEMOGLOBIN 29.7 pg (27.0-33.0); MEAN CORPUSCULAR HGB CONC 34.4 g/dl (32.0-36.5); MEAN CORPUSCULAR VOLUME 86.4 fl (80.0-96.0); MONO # 0.6 10^3/uL (0.0-0.8); MONO % 6.1 % (0.0-5.0); NEUTROPHILS # 8.7 10^3/uL (1.5-8.5); NEUTROPHILS % 87.1 % (36.0-66.0); PLATELET COUNT, AUTOMATED 256 10^3/uL (150-450); RED BLOOD COUNT 4.92 10^6/uL (4.00-5.40)
[2020-06-03 08:50] LABS: INR 0.89; PROTHROMBIN TIME 12.2 SECONDS (12.5-14.3)
[2020-06-03 09:03] LABS: FREE T4 1.11 NG/DL (0.76-1.46); MAGNESIUM LEVEL 2.1 MG/DL (1.8-2.4); THYROID STIMULATING HORMONE 3.13 uIU/ML (0.358-3.740)
--- NOTE | 2020-06-03 09:04 | REPVR ---
PROCEDURE INFORMATION: Exam: CT Head Without Contrast Exam date and time: 06/03/2020 8:53 AM Age: 80 years old Clinical indication: Syncope and collapse TECHNIQUE: Imaging protocol: Computed tomography of the head without contrast. Radiation optimization: All CT scans at this facility use at least one of these dose optimization techniques: automated exposure control; mA and/or kV adjustment per patient size (includes targeted exams where dose is matched to clinical indication); or iterative reconstruction. COMPARISON: CT Head without contrast 06/19/2019 10:05 AM FINDINGS: Brain: Generalized parenchymal atrophy and evidence of microvascular ischemic disease involving the periventricular and subcortical white matter bilaterally. Cerebral ventricles: No ventriculomegaly. Bones/joints: Unremarkable. No acute fracture. Paranasal sinuses: Visualized sinuses are unremarkable. No fluid levels. Mastoid air cells: Visualized mastoid air cells are well aerated. Soft tissues: Unremarkable. IMPRESSION: No acute intracranial pathology. Electronically signed by: Yogesh Foote On 06/03/2020 09:03:47 AM
--- NOTE | 2020-06-03 09:09 | REPVR ---
PROCEDURE INFORMATION: Exam: CT Cervical Spine Without Contrast Exam date and time: 06/03/2020 8:53 AM Age: 80 years old Clinical indication: Other: Syncope; Additional info: Trauma TECHNIQUE: Imaging protocol: Computed tomography images of the cervical spine without contrast. Radiation optimization: All CT scans at this facility use at least one of these dose optimization techniques: automated exposure control; mA and/or kV adjustment per patient size (includes targeted exams where dose is matched to clinical indication); or iterative reconstruction. COMPARISON: CT Spine,cervical w/o contrast 10/20/2016 5:10 PM FINDINGS: Vertebrae: Osteopenia. No acute fracture. Normal alignment. Discs/Spinal canal/Neural foramina: Degenerative disc disease at C5-C6. Mild stenosis of the left neural foramen at C5-C6. Facet arthropathy at C3-C4 on the left. Soft tissues: Unremarkable. Dental: Patient is edentulous. Lungs: Lung apices are normal. IMPRESSION: No acute fractures. Electronically signed by: Yogesh Foote On 06/03/2020 09:08:57 AM
--- NOTE | 2020-06-03 09:13 | REPVR ---
PROCEDURE INFORMATION: Exam: XR Chest, 1 View Exam date and time: 06/03/2020 8:58 AM Age: 80 years old Clinical indication: Other: Syncope; Additional info: Syncope/near-syncope TECHNIQUE: Imaging protocol: XR of the chest Views: 1 view. COMPARISON: No relevant prior studies available. FINDINGS: Lungs: No focal consolidation. Pleural space: Unremarkable. No pleural effusion. No pneumothorax. Heart/Mediastinum: Hiatal hernia. Vasculature: Calcified thoracic aorta. Bones/joints: Osteopenia. Other findings: No large volume effusion. IMPRESSION: No acute cardiopulmonary process. Electronically signed by: Erica Hyatt On 06/03/2020 09:13:32 AM
--- NOTE | 2020-06-03 09:17 | REPVR ---
PROCEDURE INFORMATION: Exam: XR Left Humerus Exam date and time: 06/03/2020 8:58 AM Age: 80 years old Clinical indication: Pain; Upper arm; Left; Additional info: Trauma TECHNIQUE: Imaging protocol: XR Left humerus Views: 2 or more views. COMPARISON: No relevant prior studies available. FINDINGS: Bones/joints: Osteopenia. Limited bone definition due to bone demineralization. Degenerative changes of the left shoulder. No acute fracture of the humerus. Cortical irregularity of the olecranon posteriorly which could be projectional and related to the level of penetration. Cortical osseous defect is not excluded. Soft tissues: Soft tissue distortion or injury posterior to the elbow. IMPRESSION: 1. Osteopenia. 2. Irregularity of the proximal olecranon posteriorly possibly technical versus cortical injury. Consider a three-view dedicated elbow series for exclusion of osseous abnormality or injury posteriorl. 3. Posterior soft tissue injury and irregularity at the elbow level. Electronically signed by: Erica Hyatt On 06/03/2020 09:17:10 AM
[2020-06-03] MEDS ORDERED: POTASSIUM CHLORIDE 10 MEQ SR TABLET PO ONE ×2 (09:30→13:30)
[2020-06-03] MEDS ORDERED: AMLO1TAB24 PO (10:10)
[2020-06-03] MEDS ORDERED: D31000TA2 PO (10:10)
[2020-06-03] MEDS ORDERED: CHLO25TA PO (10:10)
--- NOTE | 2020-06-03 10:20 | REPVR ---
PROCEDURE INFORMATION: Exam: XR Left Elbow Exam date and time: 06/03/2020 10:00 AM Age: 80 years old Clinical indication: Pain; Elbow; Left; Additional info: Trauma TECHNIQUE: Imaging protocol: XR Left elbow. Views: 3 or more views. COMPARISON: CR Humerus LEFT 06/03/2020 8:53 AM FINDINGS: Bones/joints: No acute bony injury or malalignment in the visualized left elbow. Soft tissues: No radiopaque foreign body. IMPRESSION: No acute bony injury or malalignment in the visualized left elbow. Electronically signed by: Bg Pastrana On 06/03/2020 10:20:08 AM
[2020-06-03] MEDS ORDERED: MOM 30ML SUSPENSION UDC PO PRN (13:15)
[2020-06-03] MEDS ORDERED: ACETAMINOPHEN TAB 650MG DOSE (2X325MG) PO PRN (13:15)
[2020-06-03] MEDS ORDERED: DENOSUMAB 60MG/1ML SYRINGE (PROLIA) (J0897 PER 1MG) SC SCH (13:30)
[2020-06-03 16:00] VITALS: BP 174/80
[2020-06-03] MEDS ORDERED: NS 1,000 ML IV SCH (16:45)
[2020-06-03 17:24] VITALS: BP 143/69
--- NOTE | 2020-06-03 19:25 | ECGEPIP ---
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
[2020-06-03 20:00] VITALS: BP 113/58
[2020-06-03 20:28] LABS: OSMOLALITY URINE 470 MOSM/KG (500-800)
[2020-06-03 20:55] LABS: SODIUM,RANDOM URINE 48 MEQ/L
--- NOTE | 2020-06-03 20:57 | HPEPDOC ---
[facility] Medical History & Physical Date of Admission Jun 03, 2020 Date of Service: Jun 03, 2020 Attending Physician: ЕЛЕНА BURROWS MD History and Physical CHIEF COMPLAINT: Syncope HISTORY OF PRESENT ILLNESS: Mattie is an 80-year-old female with pertinent past medical history of previous TIAs on Plavix and aspirin, hypertension, and hyperlipidemia who presented to the [facility] ED this morning via EMS after sustaining an unwitnessed syncopal event in her home this morning. Patient states that around 5 AM she was finishing up the bathroom and subsequently walked to a kitchen counter. During this walk, she felt acute onset of muscle weakness. When she reached the counter, she was about to pour her morning coffee and the next thing she remembered was regaining consciousness while lying on the floor. She is unsure of the duration of time she was unconscious. Her fall/collapse was on to a tile floor. She was not bleeding but did have some left upper extremity pain. She was able to stand up under her own power and walk to chair to sit down. She continued to have left upper extremity pain and subsequently called her son to come over and check on her. Her son arrived around 6 AM and subsequently then called EMS who brought her to the ED. Of relevant note, she does endorse trouble remembering words at times over the last month. She was seen last week by her classroom assistant, saying at which point she reports being started on a new diuretic, but is unsure the name. She takes his diuretic every morning, 1 tablet. She reports not taking any of her morning medications prior to her syncopal event, but in the time before she was brought into the ED, she did take all of her morning meds including her diuretic. In the ED, patient underwent extensive imaging which showed no acute abnormalities other than osteopenia - - x-rays of the left humerus, left elbow, CT cervical spine, chest x-ray, head CT were all unremarkable. She was found to be hyponatremic (serum sodium 125) and hypokalemic (serum potassium 2.9). Orthostatic vital signs were positive. Troponins were negative. Thyroid panel, VBG were also unremarkable. EKG was unchanged from prior study (LAD, prolonged NM, and lvh). Patient was given 40 mg of oral potassium chloride. Patient was subsequently admitted by the hospitalist service for further monitoring and care related to her syncopal event and hypoNa. Her primary care physician is Cierra Myers, nurse practitioner, who practices at [facility]. Her classroom assistant is Dr. Pack ([facility] in [place]). She also follows with Dr. Palmer of [facility] here in [place]. 4. History of TIAs in suspected trigeminal neuralgia. She verbally confirms in the ED that she is a DO NOT RESUSCITATE/DO NOT INTUBATE. PAST MEDICAL HISTORY: h/o TIAs on asa and plavix HTN HLD Osteopenia on Prolia Farsighted Remote history of cervical cancer s/p hysterectomy with metastases to liver s/p surgical resection of liver mets (treated 50+ years ago) - - no chemo or radiation h/o Left wrist fx h/o Right arm fx h/o b/l cataracts ovarian cysts, s/p b/l oophorectomy h/o fecal incontinence suspected trigeminal neuralgia PAST SURGICAL HISTORY: Hysterectomy over 50 years ago for cervical cancer Liver met surgical resection over 50 years ago because of spread from primary cervical cancer b/l cataract surgery b/l oophorectomy SOCIAL HISTORY: , lives alone. 12 years ago. 5 grown children with 13 grandchildren and 22 great-grandchildren. 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 She smoked from the age of 10 to the age of 40, 1 pack per day ([id number] history). She no longer drinks alcohol and only previously drank socially. No current or former use of illegal drugs. FAMILY HISTORY: Mother: , unspecified heart issues. Father: , unspecified heart issues. Brother: , throat cancer. Sister: Brain cancer ALLERGIES: Please see below. REVIEW OF SYSTEMS: CONSTITUTIONAL: Denies fever, chills, night sweats, recent unintentional change in weight. HEENT: Endorses headache that's been secondary to neck discomfort; Denies visual or auditory disturbances, blurry vision, diplopia, rhinorrhea, dysphagia, or odynophagia CARDIOVASCULAR: Denies chest pain, chest pressure, palpitations RESPIRATORY: Denies shortness of breath, pleuritic chest pain, cough GASTROINTESTINAL: Endorses straining with bowel movements; Denies abdominal pain, nausea, vomiting, melena, hematochezia GENITOURINARY: Denies dysuria or hematuria MUSCULOSKELETAL: Endorses neck pain that has been chronic NEUROLOGICAL: Endorses syncopal episode described in HPI; endorses chronic headache secondary to neck discomfort ENDOCRINE: Denies heat or cold intolerance HOME MEDICATIONS: Please see below. PHYSICAL EXAMINATION: VITAL SIGNS: Please see below. GENERAL APPEARANCE: Pleasant, elderly female lying upright in bed. A&O x3. NAD. HEENT: Normocephalic, atraumatic. Wearing eyeglasses. PERRLA. No conjunctival pallor. Moist mucous membranes. Upper dentures present. NECK: Trachea midline. No appreciated lymphadenopathy. Neck is supple. There are multiple areas of brown-colored papules overlying chest, neck and upper back. CARDIOVASCULAR: Regular rate, regular rhythm. Normal S1, S2. No JVD. LUNGS: Clear to auscultation bilaterally with no adventitious breath sounds appreciated. Decreased tidal volume. Speaking full sentences. Symmetric chest expansion. ABDOMEN: Soft, nondistended. No guarding or rigidity. Normoactive bowel sounds throughout. Well-healed surgical scars present. MUSCULOSKELETAL: 5 out of 5 muscle strength testing of upper and lower extremities bilaterally. EXTREMITIES: Bilateral lower extremities are free of pitting edema with some slight swelling. There is some skin peeling distally with evidence of some chronic venous stasis changes bilaterally. Two areas of ecchymosis over LUE - - one just distal of shoulder and the other proximal to the elbow, with no induration, areas of active bleeding or discharge. Arthritic changes of DIP joints bilateral hands. NEUROLOGICAL: Awake, alert and oriented 3. Cranial nerves III through XII grossly intact. Non-dysarthric speech. Good short-term recall. No dysdiadochokinesis. Sensation light touch intact of upper and lower extremities bilaterally. Responds appropriately to all questions and commands. PSYCHIATRIC: Pleasant, friendly, mood. Affect appears appropriate. LABORATORY DATA: Please see below. IMAGING: Head CT without contrast, 06/03/20 No acute intracranial pathology. Chest x-ray, [id number] No acute cardiopulmonary process. Left humerus x-ray, 06/03/20 Osteopenia. Irregularity of the proximal olecranon posteriorly possibly technical versus cortical injury. Consider a three-view dedicated elbow series for exclusion of osseous abnormality or injury posterior. Posterior soft tissue injury and irregularity at the elbow level. CT cervical spine, w/o contrast 06/03/20 No acute fractures. Elbow x-ray, 06/03/20 No acute bony injury or malalignment in the visualized left elbow. MICROBIOLOGY: Please see below. 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 She regained consciousness and c/o LUE pain, and was subsequently brought in via EMS, where she was found to be hyponatremic and hypokalemic with unremarkable imaging studies. She was subsequently admitted for continued care of her hyponatremia and monitoring s/p syncopal event. #Syncopal event -Likely secondary to metabolic abnormalities (hyponatremia and hypokalemia) related to initiation of chlorthalidone last week; chlorthalidone being held -Positive orthostatic vital signs in the ED -No evidence of bradycardia arrhythmias or tachycardia arrhythmias -2-D echocardiogram ordered to rule out any cardiac structural issues, possibly contributing to syncope -Completely intact neurological exam -On telemetry -Assisted ambulation only #Hyponatremia -Likely related to recent initiation of chlorthalidone last week as outpatient with subsequent renal loss of sodium. -Holding chlorthalidone -Initial serum sodium was 125 and darline to 127 after 50 mL of normal saline per hour. Fluid hydration was started. After the rise to 127, normal saline was switched to 30 mL per hour -Initial serum osmolality was 268. Therefore, this is a true hyponatremia -Trending serum sodium levels every 6 hours as well as urine sodium and urine osmolality -On telemetry #Hypokalemia -Likely related to initiation of chlorthalidone medication as an outpatient just last week -Initial serum sodium was 2.9 -Received one 40 mEq PO KCl in ED, and a second 40 mEq upon admission -Repeat sK level ordered for this afternoon -on telemetry #History of previous TIAs -Home aspirin and Plavix continued -Follows with Dr. Palmer for neurology as outpatient #HTN -Home amlodipine continued -Home chlorthalidone being held in the setting of likely contribution to syncopal event -2 g sodium diet #HLD -Home zetia continued #Suspected trigeminal neuralgia -Patient follows with local neurologist. 4. History of TIAs as well as "sensitive nerve over the left side of her face. Based on her description, as well as her medication, we suspect her diagnosis is trigeminal neuralgia. Her home carbamazepine was continued #Osteopenia -Patient receives Prolia injections every 6 months with next one due in August 2020 #DVT prophylaxis: Subcutaneous Lovenox Disposition: Pending improvement of hyponatremia Vital Signs Vital Signs Date Time Temp Pulse Resp B/P (MAP) Pulse Ox O2 Delivery O2 Flow Rate FiO2 06/03/20 17:24 98.7 80 16 143/69 (93) 95 Room Air Laboratory Data Labs 24H Laboratory Tests 2 06/03/20 08:07: POC Glucose (Misc Panel) 114H, POC Sodium (Misc Panel) 125L, POC Potassium (Misc Panel) 2.9*L, POC Chloride (Misc Panel) 84L, POC Total CO2 (Misc Panel) 31.0H, POC Blood Urea Nitrogen (Misc Panel 17, POC Ionized Calcium (Misc Panel) 4.4L, POC Creatinine (Misc Panel) 0.9, POC Hematocrit (Misc Panel) 45.0 06/03/20 08:09: POC Troponin I (Misc) 0.00 06/03/20 08:15: Immature Granulocyte % (Auto) 0.5, Neutrophils (%) (Auto) 87.1H, Lymphocytes (%) (Auto) 5.7L, Monocytes (%) (Auto) 6.1H, Eosinophils (%) (Auto) 0.3, Basophils (%) (Auto) 0.3, Neutrophils # (Auto) 8.7H, Lymphocytes # (Auto) 0.6L, Monocytes # (Auto) 0.6, Eosinophils # (Auto) 0.0, Basophils # (Auto) 0.0, Nucleated Red Blood Cells % (auto) 0.0, Prothrombin Time 12.2, Prothromb Time International Ratio 0.89, Blood Gas Bicarbonate Standard 29.7, Venous Blood pH 7.480H, Venous Blood Partial Pressure CO2 40.9, Venous Blood Partial Pressure O2 173.9H, Venous Blood Total Carbon Dioxide 31.0H, Venous Blood HCO3 29.8H, Venous Blood Oxygen Saturation 99.5H, Venous Blood Base Excess 5.8H, Osmolality 262L, Magnesium Level 2.1, Thyroid Stimulating Hormone (TSH) 3.130, Free Thyroxine 1.11 CBC/BMP Laboratory Tests 06/03/20 08:15 06/03/20 17:23 Home Medications Scheduled Amlodipine Besylate (Amlodipine Besylate) 5 Mg Tablet, 5 MG PO DAILY Aspirin (Aspirin EC) 81 Mg Tab, 81 MG PO DAILY Calcium Carbonate/Vitamin D3 (Calcium 600-Vit D3 200 Tablet) 1 Tab Tab, 1 TAB PO BID Carbamazepine (Carbamazepine) 200 Mg Tab, 200 MG PO QHS Chlorthalidone (Chlorthalidone) 25 Mg Tablet, 25 MG PO DAILY Cholecalciferol (Vitamin D3) (Vitamin D3) 1,000 Unit Tablet, 4,000 UNITS PO QHS Clopidogrel Bisulfate (Plavix) 75 Mg Tab, 75 MG PO DAILY Denosumab Injection (Prolia) 60 Mg/Ml Joelle, 60 MG SC ASDIRECTED EVERY 6 MONTHS, DUE AUGUST 2020 Ezetimibe (Zetia) 10 Mg Tab, 10 MG PO DAILY Niacin (Niacin) 500 Mg Tab, 1,500 MG PO QHS [place]-3 Fatty Acids/Fish Oil (Fish Oil 1,000 mg Capsule) 1 Each Capsule, 1,000 MG PO BID Ubidecarenone/Vit E Acet (Co Q-10 100 mg Softgel) 100 Mg Cap, 100 MG PO DAILY l Gasseri/B Bifidum/B Longum ([employer] Capsule) 1 Each Capsule, 1 CAP PO DAILY Allergies Coded Allergies: lisinopril (Verified Allergy, Intermediate, LUMP IN THROAT, 06/16/19) losartan (Verified Allergy, Intermediate, UNKNOWN REACTION, 06/16/19) rosuvastatin (Verified Adverse Reaction, Intermediate, LEG CRAMPS, 06/16/19) A-FIB/CHADSVASC A-FIB History Current/History of A-Fib/PAF?: No Current PO Anticoag Therapy: No GME ATTESTATION GME ATTESTATION My faculty preceptor for this patient encounter was physically present during the encounter and was fully available. All aspects of the patient interview, examination, medical decision making process, and medical care plan development were reviewed and approved by the faculty preceptor. The faculty preceptor is aware and concurs with the plan as stated in the body of this note and will attest to such by his/her cosignature. ATTENDING NOTE Patient was seen and examined by me personally with the residents and the students. Agree with the above assessment and plan. GLENROY MAGANA D.O. Jun 03, 2020 20:57 ЕЛЕНА BURROWS MD Jun 04, 2020 14:18
[2020-06-03] MEDS: DOCUSATE SODIUM 100 MG CAP PO SCH (21:00)
[2020-06-03] MEDS: carBAMazepine 200 MG TAB PO SCH (21:03)
[2020-06-03] MEDS: VITAMIN D 1,000 INTERNATIONAL UNITS TABLET PO SCH (21:03)
[2020-06-03] MEDS: CALCIUM/VITAMIN D 500 MG TAB PO SCH (21:03)
[2020-06-04] VITALS: BP 125/62
[2020-06-04 03:37] LABS: SODIUM,RANDOM URINE 58 MEQ/L
[2020-06-04 03:53] LABS: OSMOLALITY URINE 396 MOSM/KG (500-800)
[2020-06-04 04:00] VITALS: BP 134/60
[2020-06-04 05:29] LABS: HEMATOCRIT 40.1 % (36.0-47.0); HEMOGLOBIN 13.9 g/dl (12.0-15.5); MEAN CORPUSCULAR HGB CONC 34.7 g/dl (32.0-36.5); MEAN CORPUSCULAR VOLUME 86.6 fl (80.0-96.0); PLATELET COUNT, AUTOMATED 213 10^3/uL (150-450); RED BLOOD COUNT 4.63 10^6/uL (4.00-5.40); WHITE BLOOD COUNT 5.9 10^3/uL (4.0-10.0)
[2020-06-04 05:54] LABS: ALBUMIN 2.8 GM/DL (3.2-5.2); ALT/SGPT 15 U/L (12-78); BILIRUBIN,TOTAL 0.4 MG/DL (0.2-1.0); BLOOD UREA NITROGEN 16 MG/DL (7-18); CALCIUM LEVEL 8.8 MG/DL (8.8-10.2); CARBON DIOXIDE LEVEL 31 MEQ/L (21-32); CHLORIDE LEVEL 93 MEQ/L (98-107); CREATININE FOR GFR 0.86 MG/DL (0.55-1.30); GLOMERULAR FILTRATION RATE > 60.0 (>32); GLUCOSE, FASTING 103 MG/DL (70-100); POTASSIUM SERUM 3.3 MEQ/L (3.5-5.1); SODIUM LEVEL 130 MEQ/L (136-145); TOTAL PROTEIN 5.8 GM/DL (6.4-8.2)
[2020-06-04 06:26] LABS: OSMOLALITY URINE 420 MOSM/KG (500-800)
[2020-06-04 06:35] LABS: SODIUM,RANDOM URINE 62 MEQ/L
[2020-06-04 08:00] VITALS: BP 135/64
[2020-06-04] MEDS ORDERED: CHLORTHALIDONE 25 MG TAB PO SCH (09:00)
[2020-06-04] MEDS: EZETIMIBE 10 MG TAB (ZETIA) PO SCH (09:00)
[2020-06-04] MEDS: DOCUSATE SODIUM 100 MG CAP PO SCH ×2 (09:00→22:01)
[2020-06-04] MEDS: CALCIUM/VITAMIN D 500 MG TAB PO SCH ×2 (09:00→22:01)
[2020-06-04] MEDS: CLOPIDOGREL 75 MG TAB PO SCH (09:01)
[2020-06-04] MEDS: ENOXAPARIN 40MG/0.4ML SYRINGE (J1650 PER 10MG) SC SCH (09:01)
[2020-06-04] MEDS: amLODIPine 5 MG TAB PO SCH (09:01)
[2020-06-04] MEDS: ASPIRIN 81 MG ENTERIC TAB PO SCH (09:01)
[2020-06-04] MEDS ORDERED: POTASSIUM CHLORIDE 10 MEQ SR TABLET PO ONE (09:15)
[2020-06-04 12:00] VITALS: BP 137/68
--- NOTE | 2020-06-04 12:06 | IPNPDOC ---
Date Seen The patient was seen on 06/04/20. Progress Note SUBJECTIVE: Mattie was seen and examined this morning by the hospitalist service while sitting in bedside chair. She denies any adverse events overnight. She has been able to ambulate with assistance without any issues and has not experienced any dizziness, lightheadedness, or balance issues. She denies any current or overnight fever, chills, night sweats, chest pain, chest pressure, palpitations, shortness of breath, nausea, vomiting, or abdominal pain. OBJECTIVE PHYSICAL EXAMINATION: VITAL SIGNS: Please see below. GENERAL APPEARANCE: Pleasant, elderly female lying upright in bed. A&O x3. NAD. HEENT: Normocephalic, atraumatic. Wearing eyeglasses. Noninjected, anicteric sclera. No conjunctival pallor. Moist mucous membranes. Upper dentures present. NECK: Trachea midline. No appreciated lymphadenopathy. Neck is supple. There are multiple areas of brown-colored papules overlying chest, neck and upper back. CARDIOVASCULAR: Regular rate, regular rhythm. Normal S1, S2. No JVD. LUNGS: Clear to auscultation bilaterally with no adventitious breath sounds appreciated. Decreased tidal volume. Speaking full sentences. Symmetric chest expansion. ABDOMEN: Soft, nondistended. No guarding or rigidity. Normoactive bowel sounds throughout. Well-healed surgical scars present. MUSCULOSKELETAL: 5 out of 5 muscle strength testing of upper and lower extremities bilaterally. EXTREMITIES: Bilateral lower extremities are free of pitting edema with some slight swelling. There is some skin peeling distally with evidence of some chronic venous stasis changes bilaterally. Two areas of ecchymosis over LUE - - one just distal of shoulder and the other proximal to the elbow, with no indur ation, areas of active bleeding or discharge. Arthritic changes of DIP joints bilateral hands. NEUROLOGICAL: Awake, alert and oriented 3. No focal deficits appreciated. Non- dysarthric speech. PSYCHIATRIC: Mood and affect appears appropriate. LABORATORY DATA, IMAGING STUDIES, MICROBIOLOGY: Please see below. Head CT without contrast, 06/03/20 No acute intracranial pathology. Chest x-ray, [id number] No acute cardiopulmonary process. Left humerus x-ray, 06/03/20 Osteopenia. Irregularity of the proximal olecranon posteriorly possibly technical versus cortical injury. Consider a three-view dedicated elbow series for exclusion of osseous abnormality or injury posterior. Posterior soft tissue injury and irregularity at the elbow level. CT cervical spine, w/o contrast 06/03/20 No acute fractures. Elbow x-ray, 06/03/20 No acute bony injury or malalignment in the visualized left elbow. 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 She regained consciousness and c/o LUE pain, and was subsequently brought in via EMS, where she was found to be hyponatremic and hypokalemic with unremarkable imaging studies. She was subsequently admitted for continued care of her hyponatremia and monitoring s/p syncopal event. #Syncopal event -Likely secondary to metabolic abnormalities (hyponatremia and hypokalemia) related to initiation of chlorthalidone last week; chlorthalidone being held -Positive orthostatic vital signs in the ED -No evidence of bradycardia arrhythmias or tachycardia arrhythmias -2-D echocardiogram ordered to rule out any cardiac structural issues possibly contributing to syncope -Completely intact neurological exam last two days -On telemetry -Assisted ambulation only #Hypovalemic hyponatremia 2/2 renal losses -Likely related to recent initiation of chlorthalidone last week as outpatient with subsequent renal loss of sodium. We are holding the chlorthalidone. -This morning, sNa came up to 130 and NS (30 cc/hr) was subsequent -Initial serum sodium yesterday was 125 and darline to 127 after 50 mL/hr of normal saline. After the rise to 127, normal saline was switched to 30 mL per hour. -Initial serum osmolality was 268, therefore, this is a true hyponatremia -Trending serum sodium levels every 6 hours as well as urine sodium and urine osmolality -On telemetry #Hypokalemia -Likely related to initiation of chlorthalidone medication as an outpatient just last week -sK was 3.3 this morning and patient was subsequently given another 40 mEq po KCl -Initial serum sodium yesterday was 2.9 -on telemetry #History of previous TIAs -Home aspirin and Plavix continued -Follows with Dr. Palmer for neurology as outpatient #HTN -Home amlodipine continued; should pressures rise during admission, can increase to 10 mg dose from home dose of 5 mg -Home chlorthalidone being held in the setting of likely contribution to syncopal event -2 g sodium diet #HLD -Home zetia continued #Suspected trigeminal neuralgia -Patient follows with local neurologist. 4. History of TIAs as well as "sensitive nerve over the left side of her face. Based on her description, as well as her medication, we suspect her diagnosis is trigeminal neuralgia. Her home carbamazepine was continued #Osteopenia -Patient receives Prolia injections every 6 months with next one due in August 2020 #DVT prophylaxis: Subcutaneous Lovenox Disposition: Discharge is pending continued electrolyte stability and placement/therapy options due to the fact pt lives alone in setting of syncopal event VS, I&O, 24H, Fishbone Vital Signs/I&O Vital Signs Date Time Temp Pulse Resp B/P (MAP) Pulse Ox O2 Delivery O2 Flow Rate FiO2 06/04/20 09:01 80 135/64 06/04/20 08:00 97.8 17 93 Room Air I&O- Last 24 Hours up to 6 AM 06/04/20 05:59 Intake Total 450 ml Output Total 200 ml Balance 250 ml Laboratory Data 24H LABS Laboratory Tests 2 06/03/20 20:00: Urine Color YELLOW, Urine Appearance HAZY, Urine pH 8.0, Urine Specific [place] 1.013, Urine Protein NEGATIVE, Urine Glucose (UA) NEGATIVE, Urine Ketones NEGA TIVE, Urine Blood 1+H, Urine Nitrite NEGATIVE, Urine Bilirubin NEGATIVE, Urine Urobilinogen 0.2, Urine Leukocyte Esterase NEGATIVE, Urine WBC (Auto) 2, Urine RBC (Auto) 3, Urine Hyaline Casts (Auto) 0, Urine Bacteria (Auto) NEGATIVE, Urine Squamous Epithelial Cells 0, Urine Amorphous Sediment SMALLH, Urine Sperm (Auto) , Urine Random Osmolality 470L, Urine Random Sodium 48 06/04/20 03:07: Urine Random Osmolality 396L, Urine Random Sodium 58 06/04/20 05:10: Nucleated Red Blood Cells % (auto) 0.0, Anion Gap 6L, Glomerular Filtration Rate > 60.0, Calcium Level 8.8, Total Bilirubin 0.4, Aspartate Amino Transf (AST/SGOT) 12, Alanine Aminotransferase (ALT/SGPT) 15, Alkaline Phosphatase 77, Total Protein 5.8L, Albumin 2.8L, Albumin/Globulin Ratio 0.9L 10/16/20 06:10: Urine Random Osmolality 420L, Urine Random Sodium 62 CBC/BMP Laboratory Tests 06/03/20 17:23 06/03/20 22:53 06/04/20 05:10 06/04/20 10:40 GME ATTESTATION GME ATTESTATION My faculty preceptor for this patient encounter was physically present during the encounter and was fully available. All aspects of the patient interview, examination, medical decision making process, and medical care plan development were reviewed and approved by the faculty preceptor. The faculty preceptor is aware and concurs with the plan as stated in the body of this note and will attest to such by his/her cosignature. ATTENDING NOTE Patient was seen and examined by me personally with the residents/ students. I agree with the above assessment and plan GLENROY MAGANA D.O. Jun 04, 2020 12:06 ЕЛЕНА BURROWS MD Jun 22, 2020 12:23
[2020-06-04 16:00] VITALS: BP_SYST 131; BP_SYST 144; BP_DIAS 65; BP_DIAS 66
[2020-06-04 17:28] LABS: MAGNESIUM LEVEL 1.9 MG/DL (1.8-2.4); POTASSIUM SERUM 3.8 MEQ/L (3.5-5.1)
[2020-06-04 20:00] VITALS: BP 113/57
[2020-06-04] MEDS: carBAMazepine 200 MG TAB PO SCH (22:01)
[2020-06-04] MEDS: VITAMIN D 1,000 INTERNATIONAL UNITS TABLET PO SCH (22:01)
[2020-06-05] VITALS: BP 135/61
[2020-06-05 04:00] VITALS: BP 148/78
[2020-06-05 08:00] VITALS: BP 136/68
[2020-06-05 08:45] VITALS: BP 114/64
--- NOTE | 2020-06-05 08:47 | DS.PDOC ---
Discharge Summary General Date of Admission Jun 03, 2020 at 13:03 Date of Discharge jun 05, 2020 Discharge Summary DISCHARGE DIAGNOSES: Syncope due to orthostatic hypotension orthostati hypotension chlorthalidone induced hypotension and hyponatremia hyponatremia hypokalemia hypotension due to volume depletion dyslipidemia h/o TIA suspected Trigeminal Neuralgia COMPLICATIONS/CHIEF COMPLAINT: Syncope, Chest Pain. HISTORY OF PRESENT ILLNESS: This is an 80yo female w/ h/o previous TIAs on asa and plavix, htn, and hld who presented to [facility] ED on 06/03 w/ cc of unwitnessed syncopal event at home in ear ly morning of 06/03, falling on to a tile floor. She regained consciousness and c/o LUE pain, and was subsequently brought in via EMS, where she was found to be orthostatic, hyponatremic and hypokalemic with unremarkable imaging studies. EKG and tele were unremarkable. She was given ivfluids. HOSPITAL COURSE: After discontinuing pt's chlorthalidone, her sodium level and hypotension improved to baseline after ivfluids.Her k was supplemented and remained stable. Echo was ordered. DISCHARGE MEDICATIONS: Please see below. ALLERGIES: Please see below. PHYSICAL EXAMINATION ON DISCHARGE: VITAL SIGNS: Please see below. GENERAL APPEARANCE: A&O x3. NAD. HEENT: Normocephalic, atraumatic. anicteric sclera. No conjunctival pallor. Moist mucous membranes. Upper dentures present. NECK: Trachea midline. No appreciated lymphadenopathy. Neck is supple. T CARDIOVASCULAR: Regular rate, regular rhythm. Normal S1, S2. No JVD. LUNGS: Clear to auscultation bilaterally ABDOMEN: Soft, nondistended. No guarding or rigidity. Normoactive bowel sounds throughout. MUSCULOSKELETAL: 5 out of 5 muscle strength testing of upper and lower extremities bilaterally. EXTREMITIES: no edema LABORATORY DATA, IMAGING STUDIES, MICROBIOLOGY: Please see below. Head CT without contrast, 06/03/20 No acute intracranial pathology. Chest x-ray, [id number] No acute cardiopulmonary process. Left humerus x-ray, 06/03/20 Osteopenia. Irregularity of the proximal olecranon posteriorly possibly technical versus cortical injury. Consider a three-view dedicated elbow series for exclusion of osseous abnormality or injury posterior. Posterior soft tissue injury and irregularity at the elbow level. CT cervical spine, w/o contrast 06/03/20 No acute fractures. Elbow x-ray, 06/03/20 No acute bony injury or malalignment in the visualized left elbow. LABORATORY DATA: Please see below. TIME SPENT ON DISCHARGE: 30 minutes. Vital Signs/I&Os Vital Signs Date Time Temp Pulse Resp B/P (MAP) Pulse Ox O2 Delivery O2 Flow Rate FiO2 06/05/20 04:00 97.3 81 18 148/78 (101) 95 Room Air I&O- Last 24 Hours up to 6 AM 06/05/20 06:00 Intake Total 750 ml Output Total 900 ml Balance -150 ml Laboratory Data Labs 24H Laboratory Tests 2 06/04/20 16:53: Magnesium Level 1.9 CBC/BMP Laboratory Tests 06/04/20 10:40 06/04/20 16:53 06/04/20 23:09 06/05/20 05:00 Discharge Medications Scheduled Amlodipine Besylate (Amlodipine Besylate) 5 Mg Tablet, 5 MG PO DAILY, (Reported) Aspirin (Aspirin EC) 81 Mg Tab, 81 MG PO DAILY, (Reported) Calcium Carbonate/Vitamin D3 (Calcium 600-Vit D3 200 Tablet) 1 Tab Tab, 1 TAB PO BID, (Reported) Carbamazepine (Carbamazepine) 200 Mg Tab, 200 MG PO QHS, (Reported) Cholecalciferol (Vitamin D3) (Vitamin D3) 1,000 Unit Tablet, 4,000 UNITS PO QHS, (Reported) Clopidogrel Bisulfate (Plavix) 75 Mg Tab, 75 MG PO DAILY, (Reported) Denosumab Injection (Prolia) 60 Mg/Ml Joelle, 60 MG SC ASDIRECTED, (Reported) EVERY 6 MONTHS, DUE AUGUST 2020 Ezetimibe (Zetia) 10 Mg Tab, 10 MG PO DAILY, (Reported) Niacin (Niacin) 500 Mg Tab, 1,500 MG PO QHS, (Reported) [place]-3 Fatty Acids/Fish Oil (Fish Oil 1,000 mg Capsule) 1 Each Capsule, 1,000 MG PO BID, (Reported) Ubidecarenone/Vit E Acet (Co Q-10 100 mg Softgel) 100 Mg Cap, 100 MG PO DAILY, (Reported) l Gasseri/B Bifidum/B Longum (DiscoveRX Health Capsule) 1 Each Capsule, 1 CAP PO DAILY, (Reported) Allergies Coded Allergies: lisinopril (Verified Allergy, Intermediate, LUMP IN THROAT, 06/16/19) losartan (Verified Allergy, Intermediate, UNKNOWN REACTION, 06/16/19) rosuvastatin (Verified Adverse Reaction, Intermediate, LEG CRAMPS, 06/16/19) BAUTISTA HERMAN MD Jun 05, 2020 08:41
[2020-06-05 08:52] VITALS: BP 114/64
[2020-06-05] MEDS: amLODIPine 5 MG TAB PO SCH (08:52)
[2020-06-05] MEDS: DOCUSATE SODIUM 100 MG CAP PO SCH (08:54)
[2020-06-05] MEDS: ENOXAPARIN 40MG/0.4ML SYRINGE (J1650 PER 10MG) SC SCH (08:54)
[2020-06-05] MEDS: ASPIRIN 81 MG ENTERIC TAB PO SCH (08:54)
[2020-06-05] MEDS: CALCIUM/VITAMIN D 500 MG TAB PO SCH (08:54)
[2020-06-05] MEDS: EZETIMIBE 10 MG TAB (ZETIA) PO SCH (08:54)
[2020-06-05] MEDS: CLOPIDOGREL 75 MG TAB PO SCH (08:54)
--- NOTE | 2020-06-07 13:43 | ECHO ---
DATE OF PROCEDURE: 06/04/2020 Age: 80 Gender: Female Height: 155 cm Weight: 75 kg REFERRING PHYSICIAN: Marlon Decker MD INDICATION: Syncope MEASUREMENTS: IVS 1.2 LV 3.3 LVPW 1.3 LA 2.8 Aorta 2.7 IVC 0.9 Left atrial volume index 20 Mitral E wave velocity 75, A wave 103 E prime septal 6.0 E prime lateral 8.7 FINDINGS: The study is of acceptable technical quality. The patient is in sinus rhythm. Normal LV size with mild left ventricular hypertrophy (LVH) and preserved LV systolic function. Overall estimated left ventricular ejection fraction (LVEF) approximately 65 to 70%. Right ventricle is also normal size and systolic function. Both atria appear normal. Aortic valve is sclerotic, but has 3 cusps and preserved mobility. Mitral, tricuspid and pulmonary valves appear normal. No pericardial effusion is noted. Inferior vena cava is normal size. Aortic root is normal. Aortic arch and abdominal aorta were not well seen. Doppler interrogation reveals no aortic stenosis or insufficiency. There is trace mitral and trace tricuspid insufficiency. Calculated pulmonary artery pressure is in high 20s, corresponding to normal values. Trace pulmonic insufficiency is also noted. Mitral inflow pattern and tissue Doppler imaging of mitral annulus reveals grade 1 diastolic dysfunction. CONCLUSIONS: 1. The study is of acceptable technical quality, the patient is in sinus rhythm. 2. Normal LV size with mild left ventricular hypertrophy (LVH), preserved LV systolic function and grade 1 diastolic dysfunction. 3. No hemodynamically significant valvular disease. 4. Likely normal central venous pressure and normal pulmonary artery pressure. COMMENTS: Relatively normal echocardiogram for the patient's age. No findings to explain syncopal event. [facility]
== END 2020-06-05 10:02 | disposition home or self-care (01) | DRG 312 ==
LOC: EDBD 07:43 → M ED 07:43 → M ED INP 13:03 → ENRESERV 14:43 → M PCU 15:34
PROVIDERS: ADMIT Internal Medicine; ATTEND General Practice
DX: I95.2 Hypotension due to drugs (principal); E87.1 Hypo-osmolality and hyponatremia; Z66 Do not resuscitate; I10 Essential (primary) hypertension; E78.5 Hyperlipidemia, unspecified; Z86.73 Personal history of transient ischemic attack (TIA), and cerebral infarction without residual deficits; T50.2X5A Adverse effect of carbonic-anhydrase inhibitors, benzothiadiazides and other diuretics, initial encounter; G50.0 Trigeminal neuralgia; M85.80 Other specified disorders of bone density and structure, unspecified site; Z98.41 Cataract extraction status, right eye; Z98.42 Cataract extraction status, left eye; Z87.891 Personal history of nicotine dependence; E87.6 Hypokalemia; Z79.82 Long term (current) use of aspirin; Z79.02 Long term (current) use of antithrombotics/antiplatelets; Z79.899 Other long term (current) drug therapy; Z88.8 Allergy status to other drugs, medicaments and biological substances

== ENCOUNTER 2020-06-11 12:24 | Emergency (ER) | payer MEDICARE, MEDICAID ==
[~2020-06-11] VITALS: Ht 157.5 cm; Wt 77.3 kg
[~2020-06-11 12:24] MED LIST changes: +CHLO25TA PO; +D31000TA2 PO
[2020-06-11 13:14] LABS: HEMATOCRIT 40.4 % (36.0-47.0); HEMOGLOBIN 14.1 g/dl (12.0-15.5); MEAN CORPUSCULAR HEMOGLOBIN 30.9 pg (27.0-33.0); MEAN CORPUSCULAR HGB CONC 34.9 g/dl (32.0-36.5); MEAN CORPUSCULAR VOLUME 88.4 fl (80.0-96.0); PLATELET COUNT, AUTOMATED 258 10^3/uL (150-450); RED BLOOD COUNT 4.57 10^6/uL (4.00-5.40); WHITE BLOOD COUNT 6.6 10^3/uL (4.0-10.0)
[2020-06-11] MEDS ORDERED: NS 1,000 ML IV ONE (13:30)
[2020-06-11 14:48] LABS: ALBUMIN 3.2 GM/DL (3.2-5.2); BILIRUBIN,DIRECT 0.1 MG/DL (0.0-0.2); BILIRUBIN,TOTAL 0.4 MG/DL (0.2-1.0); MAGNESIUM LEVEL 2.2 MG/DL (1.8-2.4); THYROID STIMULATING HORMONE 2.46 uIU/ML (0.358-3.740); TOTAL PROTEIN 6.3 GM/DL (6.4-8.2)
[2020-06-11 16:41] LABS: SODIUM,RANDOM URINE 37 MEQ/L
[2020-06-11 17:01] LABS: OSMOLALITY URINE 203 MOSM/KG (500-800)
[2020-06-11 17:35] VITALS: BP 173/78
== END 2020-06-11 17:34 | disposition home or self-care (01) ==
LOC: M ED 12:24
DX: E87.1 Hypo-osmolality and hyponatremia (principal); R53.83 Other fatigue; K59.00 Constipation, unspecified; I10 Essential (primary) hypertension; E78.5 Hyperlipidemia, unspecified; K21.9 Gastro-esophageal reflux disease without esophagitis; Z86.73 Personal history of transient ischemic attack (TIA), and cerebral infarction without residual deficits; M85.80 Other specified disorders of bone density and structure, unspecified site; Z88.8 Allergy status to other drugs, medicaments and biological substances; Z79.01 Long term (current) use of anticoagulants; Z79.899 Other long term (current) drug therapy

== ENCOUNTER 2020-06-13 07:04 | Emergency (ER) | payer MEDICARE, MEDICAID ==
[~2020-06-13] VITALS: Ht 154.9 cm; Wt 77.4 kg
[2020-06-13 08:10] VITALS: BP 161/77
== END 2020-06-13 08:22 | disposition home or self-care (01) ==
LOC: M ED 07:04
DX: E87.1 Hypo-osmolality and hyponatremia (principal); Z88.8 Allergy status to other drugs, medicaments and biological substances; Z79.899 Other long term (current) drug therapy

== ENCOUNTER → 2021-08-04 | Outpatient (CLI) | payer MEDICARE, MEDICAID ==
[2021-08-04 17:35] LABS: BASO % 0.7 % (0.0-1.0); EOS # 0.2 10^3/uL (0.0-0.5); EOS % 2.4 % (0.0-3.0); HEMATOCRIT 41.9 % (36.0-47.0); HEMOGLOBIN 13.9 g/dl (12.0-15.5); LYMPH # 1.1 10^3/uL (1.5-5.0); LYMPH % 17.9 % (24.0-44.0); MEAN CORPUSCULAR HEMOGLOBIN 30.2 pg (27.0-33.0); MEAN CORPUSCULAR HGB CONC 33.2 g/dl (32.0-36.5); MEAN CORPUSCULAR VOLUME 90.9 fl (80.0-96.0); MONO # 0.5 10^3/uL (0.0-0.8); NEUTROPHILS # 4.3 10^3/uL (1.5-8.5); NEUTROPHILS % 70.5 % (36.0-66.0); PLATELET COUNT, AUTOMATED 248 10^3/uL (150-450); RED BLOOD COUNT 4.61 10^6/uL (4.00-5.40); WHITE BLOOD COUNT 6.2 10^3/uL (4.0-10.0)
[2021-08-04 17:49] LABS: ALBUMIN 3.1 GM/DL (3.2-5.2); BILIRUBIN,TOTAL 0.2 MG/DL (0.2-1.0); CALCIUM LEVEL 9.2 MG/DL (8.8-10.2); CARBAMAZEPINE (TEGRETOL) LEVEL 5.1 UG/ML (4.0-10.0); CREATININE FOR GFR 0.95 MG/DL (0.55-1.30); GLOMERULAR FILTRATION RATE 59.8 (>32); POTASSIUM SERUM 4.6 MEQ/L (3.5-5.1); TOTAL PROTEIN 6.5 GM/DL (6.4-8.2)
== END ==
LOC: M PLALAB 14:23
PROVIDERS: ATTEND Psychiatry & Neurology Neurology
DX: G50.0 Trigeminal neuralgia (principal)

== ENCOUNTER 2022-06-02 02:43 | Emergency (ER) | payer MEDICARE, MEDICAID ==
[~2022-06-02] VITALS: Ht 152.4 cm; Wt 81.8 kg
[~2022-06-02 02:43] MED LIST changes: -D31000TA2 PO; +VITA100093 PO
[2022-06-02 02:45] VITALS: BP 181/88
[2022-06-02] MEDS ORDERED: DERMABOND TOPICAL SKIN ADHESIVE TOP ONE (08:10)
== END 2022-06-02 09:10 | disposition home or self-care (01) ==
LOC: M ED 02:43
DX: S61.411A Laceration without foreign body of right hand, initial encounter (principal); I10 Essential (primary) hypertension; W54.8XXA Other contact with dog, initial encounter; Z88.8 Allergy status to other drugs, medicaments and biological substances; Z79.02 Long term (current) use of antithrombotics/antiplatelets; Z86.73 Personal history of transient ischemic attack (TIA), and cerebral infarction without residual deficits; Z79.82 Long term (current) use of aspirin; Z79.899 Other long term (current) drug therapy

== ENCOUNTER 2022-07-25 18:09 | Emergency (ER) | payer MEDICAID, MEDICARE ==
[~2022-07-25] VITALS: Ht 152.4 cm; Wt 82.2 kg
[~2022-07-25 18:09] MED LIST changes: +CLOP75TA99 PO; -PLAV1TAB2 PO
[2022-07-25] MEDS ORDERED: SODIUM CHLORIDE NASAL 0.65% SPRAY BTL (OCEAN) STA (21:12)
[2022-07-25 21:23] VITALS: BP 158/92
== END 2022-07-25 21:47 | disposition home or self-care (01) ==
LOC: M ED 18:09
DX: R04.0 Epistaxis (principal); I10 Essential (primary) hypertension; K21.9 Gastro-esophageal reflux disease without esophagitis; K44.9 Diaphragmatic hernia without obstruction or gangrene; Z86.73 Personal history of transient ischemic attack (TIA), and cerebral infarction without residual deficits; Z88.8 Allergy status to other drugs, medicaments and biological substances; Z79.82 Long term (current) use of aspirin; Z79.02 Long term (current) use of antithrombotics/antiplatelets; Z79.810 Long term (current) use of selective estrogen receptor modulators (SERMs); Z79.899 Other long term (current) drug therapy

== ENCOUNTER 2023-05-28 23:13 | Emergency (ER) | payer MEDICAID, MEDICARE ==
[~2023-05-28] VITALS: Ht 152.4 cm; Wt 78.9 kg
[~2023-05-28 23:13] MED LIST changes: +EZET10TA58 PO; -PHILCAP4 PO; +PHILLIPS COLON1 CAP PO; -ZETI10TA16 PO
[2023-05-28 23:15] VITALS: TEMP 97.4
[2023-05-29 03:29] VITALS: BP 139/73; O2SAT 95
[2023-05-29] MEDS ORDERED: CYCL7.5T32 PO (03:50)
[2023-05-29] MEDS ORDERED: CYCLOBENZAPRINE 10MG TABLET PO ONE (04:00)
== END 2023-05-29 04:07 | disposition home or self-care (01) ==
LOC: M ED 23:13
DX: M79.18 Myalgia, other site (principal); K21.9 Gastro-esophageal reflux disease without esophagitis; F17.200 Nicotine dependence, unspecified, uncomplicated; F10.10 Alcohol abuse, uncomplicated; Z88.8 Allergy status to other drugs, medicaments and biological substances; Z79.82 Long term (current) use of aspirin; Z79.899 Other long term (current) drug therapy

== ENCOUNTER → 2023-11-16 | Outpatient (CLI) | payer MEDICARE ==
[~2023-11-16] MED LIST changes: +CYCL7.5T32 PO
== END ==
LOC: M PLARAD 14:34
PROVIDERS: ATTEND Nurse Practitioner
DX: S22.080A Wedge compression fracture of T11-T12 vertebra, initial encounter for closed fracture (principal); Y93.9 Activity, unspecified; Y92.9 Unspecified place or not applicable

== ENCOUNTER 2024-04-06 07:41 | Observation (INO) | payer MEDICARE, MEDICAID ==
[~2024-04-06] VITALS: Ht 152.4 cm; Wt 62.8 kg
[2024-04-06] MEDS ORDERED: CETI-24 PO (07:54)
[2024-04-06] MEDS ORDERED: AMIT10TA7 PO (07:54)
[2024-04-06] MEDS ORDERED: FLUTISP NARES (07:54)
[2024-04-06] MEDS ORDERED: METO1TAB32 PO (07:54)
[2024-04-06] MEDS ORDERED: EZET10TA21 (07:54)
[2024-04-06] MEDS ORDERED: PREG50CA3 (07:54)
[2024-04-06] MEDS ORDERED: FURO20TA2 (07:54)
[2024-04-06] MEDS: LIDOCAINE 2% 5ML JELLY UROJET TOP ONE (08:10)
[2024-04-06 08:47] LABS: BASO % 0.5 % (0.0-1.0); EOS # 0.2 10^3/uL (0.0-0.5); EOS % 2.6 % (0.0-3.0); HEMATOCRIT 41.1 % (36.0-47.0); HEMOGLOBIN 14.2 g/dl (12.0-15.5); LYMPH # 0.8 10^3/uL (1.5-5.0); LYMPH % 10.8 % (24.0-44.0); MEAN CORPUSCULAR HEMOGLOBIN 30.3 pg (27.0-33.0); MEAN CORPUSCULAR HGB CONC 34.5 g/dl (32.0-36.5); MEAN CORPUSCULAR VOLUME 87.6 fl (80.0-96.0); MONO # 0.5 10^3/uL (0.0-0.8); MONO % 6.3 % (2.0-8.0); NEUTROPHILS # 5.8 10^3/uL (1.5-8.5); NEUTROPHILS % 79.5 % (36.0-66.0); PLATELET COUNT, AUTOMATED 211 10^3/uL (150-450); RED BLOOD COUNT 4.69 10^6/uL (4.00-5.40); WHITE BLOOD COUNT 7.3 10^3/uL (4.0-10.0)
[2024-04-06] MEDS ORDERED: ISOVUE-370 76% 100ML VIAL As Ordered ONE (08:52)
[2024-04-06 09:09] LABS: CPK CREATINE PHOSPHOKINASE 44 U/L (34-145)
[2024-04-06 09:10] LABS: ALBUMIN 3.1 G/DL (3.2-5.2); ALKALINE PHOSPHATASE 67 U/L (46-116); ALT/SGPT 13 U/L (7.0-40); AST/SGOT 12 U/L (<34); BILIRUBIN,DIRECT 0.2 MG/DL (<0.4); BILIRUBIN,TOTAL 0.4 MG/DL (0.3-1.2); BLOOD UREA NITROGEN 14 MG/DL (9-23); CALCIUM LEVEL 8.5 MG/DL (8.3-10.6); CARBON DIOXIDE LEVEL 28 MMOL/L (20-31); CHLORIDE LEVEL 98 MMOL/L (98-107); CK-MB VALUE MASS 2.7 NG/ML (<3.6); CREATININE FOR GFR 0.92 MG/DL (0.55-1.30); GLOMERULAR FILTRATION RATE > 60.0 (>32); GLUCOSE, FASTING 89 MG/DL (74-106); MB/CK RELATIVE INDEX 6.13 (< OR =4); POTASSIUM SERUM 4.3 MMOL/L (3.5-5.1); SODIUM LEVEL 130 MMOL/L (136-145); TOTAL PROTEIN 6.3 G/DL (5.7-8.2)
[2024-04-06 09:11] LABS: THYROID STIMULATING HORMONE 5.647 uIU/ML (0.55-4.78)
[2024-04-06 09:45] LABS: FREE T4 1.09 NG/DL (0.89-1.76)
[2024-04-06 10:11] LABS: CK-MB VALUE MASS 2.4 NG/ML (<3.6)
[2024-04-06 10:12] LABS: MB/CK RELATIVE INDEX 7.05 (< OR =4)
[2024-04-06 10:20] LABS: CREATININE,RANDOM URINE 99.9 MG/DL
[2024-04-06] MEDS ORDERED: **NOTE PATIENT COMMENT** MISC XX SCH (11:10)
[2024-04-06] MEDS ORDERED: OMEG10002 PO (11:39)
[2024-04-06] MEDS ORDERED: CALC600T57 PO (11:39)
[2024-04-06] MEDS ORDERED: NYST-13 TOP (11:39)
[2024-04-06] MEDS ORDERED: ALIR75PE3 SC (11:39)
[2024-04-06] MEDS ORDERED: HOME MED LIST COMPLETE! XX SCH (11:45)
[2024-04-06 12:15] LABS: BLOOD UREA NITROGEN 12 MG/DL (9-23); CALCIUM LEVEL 8.2 MG/DL (8.3-10.6); CARBON DIOXIDE LEVEL 28 MMOL/L (20-31); CHLORIDE LEVEL 101 MMOL/L (98-107); CREATININE FOR GFR 0.85 MG/DL (0.55-1.30); GLOMERULAR FILTRATION RATE > 60.0 (>32); GLUCOSE, FASTING 95 MG/DL (74-106); POTASSIUM SERUM 4.3 MMOL/L (3.5-5.1); SODIUM LEVEL 133 MMOL/L (136-145)
[2024-04-06 14:45] VITALS: BP 130/90; TEMP 97.3; O2SAT 98
[2024-04-06] MEDS: NYSTATIN CREAM 15GM TOP SCH (15:50)
[2024-04-06] MEDS: ENOXAPARIN 30MG/0.3ML SYRINGE (J1650 PER 10MG) SC SCH (15:51)
[2024-04-06 18:00] VITALS: BP 132/91; TEMP 97.5; O2SAT 98
[2024-04-06 18:16] LABS: BLOOD UREA NITROGEN 10 MG/DL (9-23); CALCIUM LEVEL 8.3 MG/DL (8.3-10.6); CARBON DIOXIDE LEVEL 26 MMOL/L (20-31); CHLORIDE LEVEL 102 MMOL/L (98-107); CREATININE FOR GFR 0.78 MG/DL (0.55-1.30); GLOMERULAR FILTRATION RATE > 60.0 (>32); GLUCOSE, FASTING 111 MG/DL (74-106); POTASSIUM SERUM 4.2 MMOL/L (3.5-5.1); SODIUM LEVEL 133 MMOL/L (136-145)
[2024-04-06] MEDS: carBAMazepine 200MG TABLET PO SCH (20:14)
[2024-04-06] MEDS: FLUTICASONE PROP 0.05% NASAL SPRAY 16 GM (FLONASE) NARES SCH (20:15)
[2024-04-06 20:20] VITALS: BP 161/95; TEMP 97.5; O2SAT 95
[2024-04-06 23:36] LABS: BLOOD UREA NITROGEN 12 MG/DL (9-23); CALCIUM LEVEL 7.7 MG/DL (8.3-10.6); CARBON DIOXIDE LEVEL 28 MMOL/L (20-31); CHLORIDE LEVEL 101 MMOL/L (98-107); GLOMERULAR FILTRATION RATE > 60.0 (>32); GLUCOSE, FASTING 89 MG/DL (74-106); POTASSIUM SERUM 4.1 MMOL/L (3.5-5.1); SODIUM LEVEL 131 MMOL/L (136-145)
[2024-04-07] VITALS (7 sets, daily range): BP systolic 130–175; BP diastolic 58–90; TEMP 97.2–97.7; O2SAT 94–97
[2024-04-07 06:23] LABS: HEMATOCRIT 37.9 % (36.0-47.0); HEMOGLOBIN 13.1 g/dl (12.0-15.5); MEAN CORPUSCULAR HGB CONC 34.6 g/dl (32.0-36.5); MEAN CORPUSCULAR VOLUME 86.9 fl (80.0-96.0); PLATELET COUNT, AUTOMATED 198 10^3/uL (150-450); RED BLOOD COUNT 4.36 10^6/uL (4.00-5.40); WHITE BLOOD COUNT 4.9 10^3/uL (4.0-10.0)
[2024-04-07 06:47] LABS: BLOOD UREA NITROGEN 10 MG/DL (9-23); CALCIUM LEVEL 8.3 MG/DL (8.3-10.6); CARBON DIOXIDE LEVEL 27 MMOL/L (20-31); CHLORIDE LEVEL 101 MMOL/L (98-107); CREATININE FOR GFR 0.81 MG/DL (0.55-1.30); GLOMERULAR FILTRATION RATE > 60.0 (>32); GLUCOSE, FASTING 95 MG/DL (74-106); MAGNESIUM LEVEL 1.7 MG/DL (1.8-2.4); POTASSIUM SERUM 3.9 MMOL/L (3.5-5.1); SODIUM LEVEL 131 MMOL/L (136-145)
[2024-04-07] MEDS: EZETIMIBE 10MG TABLET (ZETIA) PO SCH (08:45)
[2024-04-07] MEDS: METOPROLOL SUCC *XL* 25MG TAB (TopROL *XL*) PO SCH (08:45)
[2024-04-07] MEDS: CLOPIDOGREL 75 MG TAB PO SCH (08:46)
[2024-04-07] MEDS: NS 1,000 ML IV SCH (11:22)
[2024-04-08 04:00] VITALS: BP 146/86; TEMP 97.3; O2SAT 97
[2024-04-08 06:37] LABS: HEMATOCRIT 40.1 % (36.0-47.0); HEMOGLOBIN 13.5 g/dl (12.0-15.5); MEAN CORPUSCULAR HEMOGLOBIN 29.8 pg (27.0-33.0); MEAN CORPUSCULAR HGB CONC 33.7 g/dl (32.0-36.5); MEAN CORPUSCULAR VOLUME 88.5 fl (80.0-96.0); PLATELET COUNT, AUTOMATED 202 10^3/uL (150-450); RED BLOOD COUNT 4.53 10^6/uL (4.00-5.40); WHITE BLOOD COUNT 5.5 10^3/uL (4.0-10.0)
[2024-04-08 07:21] LABS: BLOOD UREA NITROGEN 9 MG/DL (9-23); CALCIUM LEVEL 8.3 MG/DL (8.3-10.6); CARBON DIOXIDE LEVEL 26 MMOL/L (20-31); CHLORIDE LEVEL 107 MMOL/L (98-107); CREATININE FOR GFR 0.78 MG/DL (0.55-1.30); GLOMERULAR FILTRATION RATE > 60.0 (>32); GLUCOSE, FASTING 105 MG/DL (74-106); MAGNESIUM LEVEL 1.8 MG/DL (1.8-2.4); POTASSIUM SERUM 3.9 MMOL/L (3.5-5.1); SODIUM LEVEL 137 MMOL/L (136-145)
[2024-04-08 08:00] VITALS: BP 152/90; TEMP 97.3; O2SAT 96
[2024-04-08 12:00] VITALS: BP 114/61; TEMP 97.7; O2SAT 97
[2024-04-08 16:00] VITALS: BP 148/76; TEMP 97.3; O2SAT 95
[2024-04-08 20:00] VITALS: BP 140/74; TEMP 97.5; O2SAT 94
[2024-04-08 23:28] VITALS: BP 166/78; TEMP 98; O2SAT 96
[2024-04-09 04:00] VITALS: BP 150/68; TEMP 97.5; O2SAT 96
[2024-04-09 06:30] LABS: HEMATOCRIT 39.1 % (36.0-47.0); HEMOGLOBIN 13.4 g/dl (12.0-15.5); MEAN CORPUSCULAR HGB CONC 34.3 g/dl (32.0-36.5); MEAN CORPUSCULAR VOLUME 87.5 fl (80.0-96.0); PLATELET COUNT, AUTOMATED 207 10^3/uL (150-450); RED BLOOD COUNT 4.47 10^6/uL (4.00-5.40); WHITE BLOOD COUNT 5.7 10^3/uL (4.0-10.0)
[2024-04-09 07:00] LABS: BLOOD UREA NITROGEN 13 MG/DL (9-23); CALCIUM LEVEL 9.3 MG/DL (8.3-10.6); CARBON DIOXIDE LEVEL 24 MMOL/L (20-31); CHLORIDE LEVEL 105 MMOL/L (98-107); CREATININE FOR GFR 0.82 MG/DL (0.55-1.30); GLOMERULAR FILTRATION RATE > 60.0 (>32); GLUCOSE, FASTING 107 MG/DL (74-106); MAGNESIUM LEVEL 1.8 MG/DL (1.8-2.4); POTASSIUM SERUM 4.1 MMOL/L (3.5-5.1); SODIUM LEVEL 136 MMOL/L (136-145)
[2024-04-09 08:00] VITALS: BP 180/79; TEMP 97.5; O2SAT 97
[2024-04-09 12:00] VITALS: BP 137/72; TEMP 97.2; O2SAT 100
[2024-04-09 16:00] VITALS: BP 148/71; TEMP 97.3; O2SAT 99
[2024-04-09 19:49] VITALS: BP 152/84; TEMP 97; O2SAT 99
[2024-04-10] VITALS: BP 150/72; TEMP 97.3; O2SAT 97
[2024-04-10 03:41] VITALS: BP 130/68; TEMP 97.6; O2SAT 95
[2024-04-10 06:10] LABS: HEMATOCRIT 37.8 % (36.0-47.0); HEMOGLOBIN 13.1 g/dl (12.0-15.5); MEAN CORPUSCULAR HEMOGLOBIN 30.5 pg (27.0-33.0); MEAN CORPUSCULAR HGB CONC 34.7 g/dl (32.0-36.5); MEAN CORPUSCULAR VOLUME 88.1 fl (80.0-96.0); PLATELET COUNT, AUTOMATED 199 10^3/uL (150-450); RED BLOOD COUNT 4.29 10^6/uL (4.00-5.40); WHITE BLOOD COUNT 5.2 10^3/uL (4.0-10.0)
[2024-04-10 06:28] LABS: BLOOD UREA NITROGEN 14 MG/DL (9-23); CALCIUM LEVEL 8.5 MG/DL (8.3-10.6); CARBON DIOXIDE LEVEL 23 MMOL/L (20-31); CHLORIDE LEVEL 103 MMOL/L (98-107); CREATININE FOR GFR 0.85 MG/DL (0.55-1.30); GLOMERULAR FILTRATION RATE > 60.0 (>32); GLUCOSE, FASTING 118 MG/DL (74-106); MAGNESIUM LEVEL 1.6 MG/DL (1.8-2.4); POTASSIUM SERUM 4.2 MMOL/L (3.5-5.1); SODIUM LEVEL 132 MMOL/L (136-145)
[2024-04-10 08:00] VITALS: BP 128/64; TEMP 97.7; O2SAT 97
[2024-04-10 12:00] VITALS: BP 132/66; TEMP 97.5; O2SAT 97
[2024-04-10] MEDS: MAG SULF 1GM/100ML (MAG RUN) 1 GM in IV 1 EA IV ONE (13:47)
[2024-04-10 16:00] VITALS: BP 142/88; TEMP 97.5; O2SAT 96
[2024-04-10] MEDS: ACETAMINOPHEN 500 MG TAB PO PRN (18:11)
[2024-04-10 20:13] VITALS: BP 134/68; TEMP 97; O2SAT 97
[2024-04-11 00:08] VITALS: BP 133/63; TEMP 97; O2SAT 99
[2024-04-11 04:10] VITALS: BP 137/73; TEMP 97.2; O2SAT 97
[2024-04-11 05:56] LABS: HEMATOCRIT 37.2 % (36.0-47.0); HEMOGLOBIN 12.6 g/dl (12.0-15.5); MEAN CORPUSCULAR HEMOGLOBIN 29.9 pg (27.0-33.0); MEAN CORPUSCULAR HGB CONC 33.9 g/dl (32.0-36.5); MEAN CORPUSCULAR VOLUME 88.2 fl (80.0-96.0); PLATELET COUNT, AUTOMATED 197 10^3/uL (150-450); RED BLOOD COUNT 4.22 10^6/uL (4.00-5.40); WHITE BLOOD COUNT 5.2 10^3/uL (4.0-10.0)
[2024-04-11 06:17] LABS: BLOOD UREA NITROGEN 15 MG/DL (9-23); CALCIUM LEVEL 8.2 MG/DL (8.3-10.6); CARBON DIOXIDE LEVEL 27 MMOL/L (20-31); CHLORIDE LEVEL 102 MMOL/L (98-107); CREATININE FOR GFR 0.89 MG/DL (0.55-1.30); GLOMERULAR FILTRATION RATE > 60.0 (>32); GLUCOSE, FASTING 90 MG/DL (74-106); MAGNESIUM LEVEL 1.9 MG/DL (1.8-2.4); POTASSIUM SERUM 4.2 MMOL/L (3.5-5.1); SODIUM LEVEL 132 MMOL/L (136-145)
[2024-04-11 08:00] VITALS: BP 125/55; TEMP 97.5; O2SAT 96
[2024-04-11] MEDS: LIDOCAINE 5% (LIDODERM) PATCH TD SCH (08:21)
[2024-04-11 08:26] VITALS: BP 133/56
[2024-04-11 12:00] VITALS: BP 153/69; TEMP 97.3; O2SAT 96
[2024-04-11 16:00] VITALS: BP 160/73; TEMP 97.5; O2SAT 98
[2024-04-11] MEDS ORDERED: LIDO5TD TD (16:20)
== END 2024-04-11 18:00 | disposition home health service (06) ==
LOC: M ED 07:41 → M ED INP 07:42 → M MSPAV 14:32
PROVIDERS: ADMIT Family Medicine; ATTEND Internal Medicine
DX: G93.41 Metabolic encephalopathy (principal); I61.9 Nontraumatic intracerebral hemorrhage, unspecified; E87.1 Hypo-osmolality and hyponatremia; I10 Essential (primary) hypertension; E78.5 Hyperlipidemia, unspecified; M81.0 Age-related osteoporosis without current pathological fracture; Z86.73 Personal history of transient ischemic attack (TIA), and cerebral infarction without residual deficits; Z79.02 Long term (current) use of antithrombotics/antiplatelets; Z79.899 Other long term (current) drug therapy; Z88.8 Allergy status to other drugs, medicaments and biological substances
CPT/HCPCS: 36415; 70450; 70551; 71045; 71275; 72125; 74177; 80047; 80048; 80076; 81001; 82140; 82550; 82553; 82570; 83605; 83735; 83880; 83930; 83935; 84300; 84439; 84443; 84484; 85025; 85027; 87040; 87077; 87086; 93005; 93041; 94760; 96360; 96361; 96372; 97161; 99285; G0378; J1650; J3475; Q9967

== ENCOUNTER → 2024-04-30 | Outpatient (CLI) | payer MEDICARE, MEDICAID ==
[~2024-04-30] MED LIST changes: +ALIR75PE3 SC; +AMIT10TA7 PO; +CALC600T57 PO; +CETI-24 PO; +EZET10TA21; +FLUTISP NARES; +FURO20TA2; +LIDO5TD TD; +METO1TAB32 PO; +NYST-13 TOP; +OMEG10002 PO; +PREG50CA3
== END ==
LOC: M RAD 07:24
PROVIDERS: ATTEND Nurse Practitioner
DX: I62.9 Nontraumatic intracranial hemorrhage, unspecified (principal)

== ENCOUNTER → 2024-05-14 | Outpatient (CLI) | payer MEDICARE, MEDICAID | LOC: M WHC 09:37 | PROVIDERS: ATTEND Nurse Practitioner | DX: D48.7 Neoplasm of uncertain behavior of other specified sites (principal) ==

== ENCOUNTER → 2024-11-17 | Outpatient (CLI) | payer MEDICARE, MEDICAID ==
[~2024-11-17] MED LIST changes: +DENO60SY2 SC; -PROL60SO SC
== END ==
LOC: M RAD 10:53
PROVIDERS: ATTEND Physician Assistant Medical
DX: M79.605 Pain in left leg (principal); M79.604 Pain in right leg; I82.4Z3 Acute embolism and thrombosis of unspecified deep veins of distal lower extremity, bilateral

== ENCOUNTER → 2024-11-17 | Outpatient (CLI) | payer MEDICARE, MEDICAID | LOC: M RAD 10:49 | PROVIDERS: ATTEND Nurse Practitioner Family | DX: R22.1 Localized swelling, mass and lump, neck (principal); M79.605 Pain in left leg; M79.604 Pain in right leg; I82.4Z3 Acute embolism and thrombosis of unspecified deep veins of distal lower extremity, bilateral ==

== ENCOUNTER 2025-05-28 19:49 | Observation (INO) | payer MEDICARE, MEDICAID ==
[~2025-05-28] VITALS: Ht 170.2 cm; Wt 72.2 kg
[~2025-05-28 19:49] MED LIST changes: +AMIT10TA11 PO; -AMIT10TA7 PO; +CARB-19 PO; -EZET10TA21; +EZET10TA57; -NYST-13 TOP; +NYST0.1C TOP; +PRAV10TA PO; -PRAV10TA4 PO
[2025-05-28 21:05] LABS: BASO # 0.0 10^3/uL (0.0-0.2); BASO % 0.3 % (0.0-1.0); EOS # 0.0 10^3/uL (0.0-0.5); EOS % 0.1 % (0.0-3.0); LYMPH # 0.5 10^3/uL (1.5-5.0); LYMPH % 5.4 % (24.0-44.0); MONO # 0.6 10^3/uL (0.0-0.8); MONO % 6.3 % (2.0-8.0); NEUTROPHILS # 7.9 10^3/uL (1.5-8.5); NEUTROPHILS % 87.5 % (36.0-66.0); PLATELET COUNT, AUTOMATED 230 10^3/uL (150-450)
[2025-05-28] MEDS: ACETAMINOPHEN *IV* 1,000 MG in IV 1 EA IV ONE (21:17)
[2025-05-28 21:31] LABS: ALT/SGPT 9.0 U/L (7.0-40); AST/SGOT 14.0 U/L (<34); CALCIUM LEVEL 8.5 MG/DL (8.3-10.6); CARBON DIOXIDE LEVEL 23.0 MMOL/L (20-31); CHLORIDE LEVEL 99.0 MMOL/L (98-107); CPK CREATINE PHOSPHOKINASE 81.0 U/L (34-145); CREATININE FOR GFR 0.94 MG/DL (0.55-1.30); GLOMERULAR FILTRATION RATE 58.7 (>32); MAGNESIUM LEVEL 2.1 MG/DL (1.8-2.4); POTASSIUM SERUM 4.8 MMOL/L (3.5-5.1); SODIUM LEVEL 134.0 MMOL/L (136-145)
[2025-05-28 21:44] LABS: INR 0.89
[2025-05-28] MEDS: TETANUS/DIPHTH/ACEL. PERTUSSIS 0.5 ML SYR IM.IMMUN ONE (23:12)
[2025-05-28 23:43] VITALS: O2SAT 96
[2025-05-28] MEDS: ENTRESTO 24-26 MG TABLET (SACUBITRIL/VALSARTAN) PO STA (23:49)
[2025-05-28] MEDS: EZETIMIBE 10 MG TABLET PO STA (23:49)
[2025-05-29] MEDS ORDERED: NITROGLYCERIN 0.4 MG SUBL TABLET SL PRN (01:45)
[2025-05-29 03:03] VITALS: BP 159/89; TEMP 97.8; O2SAT 95
[2025-05-29] MEDS: NYSTATIN 100,000 UNITS/GM TOPICAL PWD 15 GM TOP SCH (07:43)
[2025-05-29 08:00] VITALS: BP 133/68; TEMP 97.3; O2SAT 92
[2025-05-29] MEDS: ENTRESTO 24-26 MG TABLET (SACUBITRIL/VALSARTAN) PO SCH (09:00)
[2025-05-29 09:55] LABS: BASO # 0.0 10^3/uL (0.0-0.2); BASO % 0.4 % (0.0-1.0); EOS # 0.1 10^3/uL (0.0-0.5); EOS % 0.6 % (0.0-3.0); LYMPH # 0.8 10^3/uL (1.5-5.0); LYMPH % 9.7 % (24.0-44.0); MONO # 0.5 10^3/uL (0.0-0.8); MONO % 6.2 % (2.0-8.0); NEUTROPHILS # 6.8 10^3/uL (1.5-8.5); NEUTROPHILS % 82.5 % (36.0-66.0); PLATELET COUNT, AUTOMATED 250 10^3/uL (150-450)
[2025-05-29 11:07] LABS: CALCIUM LEVEL 8.4 MG/DL (8.3-10.6); CARBON DIOXIDE LEVEL 24.0 MMOL/L (20-31); CHLORIDE LEVEL 99.0 MMOL/L (98-107); CREATININE FOR GFR 0.95 MG/DL (0.55-1.30); GLOMERULAR FILTRATION RATE 58.0 (>32); POTASSIUM SERUM 4.8 MMOL/L (3.5-5.1); SODIUM LEVEL 134.0 MMOL/L (136-145)
[2025-05-29] MEDS ORDERED: ENTR1TAB PO (11:21)
[2025-05-29] MEDS ORDERED: VENTAER INH (11:21)
[2025-05-29] MEDS ORDERED: HOME MED LIST COMPLETE! XX SCH (11:25)
[2025-05-29 12:00] VITALS: BP 119/55; TEMP 97.7; O2SAT 92
[2025-05-29] MEDS: METOPROLOL SUCC. 25 MG *XL* TAB PO SCH (12:21)
[2025-05-29] MEDS: OMEGA-3 1000 MG CAPSULE PO SCH (12:21)
[2025-05-29] MEDS: ENOXAPARIN 40 MG/0.4 ML SYRINGE (J1650 PER 10MG) SC SCH (12:21)
[2025-05-29] MEDS: EZETIMIBE 10 MG TABLET PO SCH (12:21)
[2025-05-29] MEDS: ACETAMINOPHEN 325 MG TAB PO PRN (15:52)
[2025-05-29 18:43] LABS: KETONE, URINE AUTO RFX NEGATIVE (NEGATIVE); LEUKOCYTE ESTERASE UR AUTO RFX NEGATIVE (NEGATIVE); MUCUS, URINE RFX SMALL (NEGATIVE); NITRITE, URINE AUTO RFX NEGATIVE (NEGATIVE); RBC, URINE AUTO RFX 0 /HPF (0-3); SQUAM EPITHELIAL CELL UR AURFX 5 /HPF (0-6); WBC, URINE AUTO RFX 3 /HPF (0-3)
[2025-05-29] MEDS: VITAMIN D 1,000 INTERNATIONAL UNITS TABLET PO SCH (21:34)
[2025-05-30 03:52] VITALS: BP 162/60; TEMP 97.2; O2SAT 94
[2025-05-30 07:17] LABS: PLATELET COUNT, AUTOMATED 202 10^3/uL (150-450)
[2025-05-30 07:36] LABS: ALT/SGPT < 9 U/L (7.0-40); AST/SGOT 18 U/L (<34); CALCIUM LEVEL 8.1 MG/DL (8.3-10.6); CARBON DIOXIDE LEVEL 26 MMOL/L (20-31); CHLORIDE LEVEL 100 MMOL/L (98-107); CREATININE FOR GFR 1.15 MG/DL (0.55-1.30); GLOMERULAR FILTRATION RATE 46.1 (>32); MAGNESIUM LEVEL 2.1 MG/DL (1.8-2.4); POTASSIUM SERUM 4.5 MMOL/L (3.5-5.1); SODIUM LEVEL 134 MMOL/L (136-145)
[2025-05-30] MEDS: METOPROLOL SUCC. 50 MG *XL* TAB PO SCH (08:34)
[2025-05-30] MEDS ORDERED: CLOPIDOGREL 75 MG TAB PO SCH (09:00)
[2025-05-30] MEDS ORDERED: CETIRIZINE 10 MG TAB PO SCH (09:00)
[2025-05-30] MEDS ORDERED: LIDOCAINE 5% PATCH TD SCH (09:00)
[2025-05-31 03:53] VITALS: BP 119/64; TEMP 97.2; O2SAT 99
[2025-05-31 12:16] VITALS: BP 144/64; TEMP 97.9; O2SAT 97
[2025-05-31 17:22] VITALS: BP 131/61
[2025-05-31 19:50] VITALS: BP 128/62; TEMP 97.2; O2SAT 97
[2025-05-31 20:00] VITALS: BP 130/54; TEMP 97.7; O2SAT 96
[2025-06-01 05:26] VITALS: BP 141/69; TEMP 97.2; O2SAT 99
[2025-06-01 20:22] VITALS: BP 88/38; TEMP 97.2; O2SAT 94
[2025-06-01] MEDS: NS (Normal Saline) 0.9% 250 ML IV SCH (22:07)
[2025-06-01 22:10] VITALS: BP 88/48
[2025-06-01] MEDS: KETOROLAC 30 MG/ML 1 ML VIAL IV ONE (22:45)
[2025-06-03 04:50] VITALS: BP 150/58; TEMP 97.2; O2SAT 98
[2025-06-03 22:03] VITALS: BP 134/68
[2025-06-04 04:00] VITALS: BP 132/58; TEMP 97.3; O2SAT 97
[2025-06-04] MEDS ORDERED: MIRALAX *UNIT DOSE* 17 GM PACKET PO PRN (15:50)
[2025-06-04] MEDS ORDERED: SENNOSIDES/DOCUSATE SODIUM 8.6 MG/50MG TAB PO PRN (15:50)
[2025-06-04] MEDS ORDERED: MOM 30 ML SUSPENSION UDC PO PRN (15:50)
[2025-06-04] MEDS ORDERED: FLEET ENEMA PR PRN (15:50)
[2025-06-04] MEDS: LACTULOSE 20 GM/30 ML SYRUP UDC PO ONE (15:57)
[2025-06-04] MEDS ORDERED: LACTULOSE 20 GM/30 ML SYRUP UDC PO PRN (21:00)
[2025-06-04 21:39] VITALS: BP 129/60; TEMP 97.2; O2SAT 97
[2025-06-05] MEDS: MIDODRINE 5 MG TAB PO ONE (10:13)
[2025-06-05 10:49] VITALS: BP 102/58
[2025-06-05] MEDS: MIDODRINE 5 MG TAB PO SCH (11:58)
[2025-06-05 20:29] VITALS: BP 124/56
[2025-06-06 04:36] VITALS: BP 155/66; TEMP 97.2; O2SAT 97
[2025-06-06 12:00] VITALS: BP 100/48; TEMP 97.3; O2SAT 95
[2025-06-06 20:19] VITALS: BP 145/68
[2025-06-07 04:56] VITALS: BP 146/66; TEMP 97.2; O2SAT 97
[2025-06-07 07:59] VITALS: BP 119/49; TEMP 97.3; O2SAT 97
[2025-06-07 12:19] VITALS: BP 131/54; TEMP 97.5; O2SAT 98
[2025-06-08 00:11] VITALS: BP 123/53; TEMP 97.2; O2SAT 95
[2025-06-08 08:00] VITALS: BP 124/83; TEMP 97; O2SAT 96
[2025-06-08 13:20] VITALS: BP 126/82; TEMP 97.2; O2SAT 96
[2025-06-08 20:45] VITALS: BP 139/70
[2025-06-09 20:09] VITALS: BP 158/66; TEMP 97.2; O2SAT 97
[2025-06-10 05:08] VITALS: BP 156/66; TEMP 97; O2SAT 96
[2025-06-10] MEDS: CEPHALEXIN 500 MG CAP PO SCH (12:47)
[2025-06-10 20:44] VITALS: BP 125/51; TEMP 97.2; O2SAT 96
[2025-06-11 04:00] VITALS: BP 157/75; TEMP 97.2; O2SAT 94
[2025-06-12 04:00] VITALS: BP 179/72; TEMP 97; O2SAT 97
[2025-06-12 09:30] VITALS: BP 88/50
[2025-06-12 10:41] VITALS: BP 114/54
[2025-06-12 16:54] VITALS: BP 160/79
[2025-06-13 06:09] VITALS: BP 136/62; TEMP 97.9; O2SAT 95
[2025-06-13 20:51] VITALS: BP 124/57
[2025-06-14 05:31] VITALS: BP 122/58; TEMP 97.5; O2SAT 96
[2025-06-15 04:00] VITALS: BP 128/63; TEMP 97.5; O2SAT 95
[2025-06-15] MEDS: ONDANSETRON 4MG ORAL DISINTEGRATING TAB PO PRN (09:15)
[2025-06-15 16:25] VITALS: BP 130/55; TEMP 98.6
[2025-06-16 04:02] VITALS: BP 128/62; TEMP 97.9; O2SAT 96
[2025-06-16 20:13] VITALS: BP 149/58; TEMP 97.7; O2SAT 94
[2025-06-17 04:04] VITALS: BP 118/56; TEMP 97.5; O2SAT 95
[2025-06-17 14:15] LABS: PLATELET COUNT, AUTOMATED 194 10^3/uL (150-450)
[2025-06-17] MEDS: FUROSEMIDE 20 MG TAB PO SCH (14:29)
[2025-06-17 14:38] LABS: CALCIUM LEVEL 7.4 MG/DL (8.3-10.6); CARBON DIOXIDE LEVEL 26.0 MMOL/L (20-31); CHLORIDE LEVEL 95.0 MMOL/L (98-107); CREATININE FOR GFR 0.92 MG/DL (0.55-1.30); GLOMERULAR FILTRATION RATE 60.3 (>32); POTASSIUM SERUM 4.9 MMOL/L (3.5-5.1); SODIUM LEVEL 127.0 MMOL/L (136-145)
[2025-06-17 20:48] VITALS: BP 151/61; TEMP 96.6; O2SAT 96
[2025-06-18 04:52] VITALS: BP 132/58; TEMP 98.6; O2SAT 94
[2025-06-18 15:00] LABS: BASO # 0.0 10^3/uL (0.0-0.2); BASO % 0.9 % (0.0-1.0); EOS # 0.1 10^3/uL (0.0-0.5); EOS % 3.4 % (0.0-3.0); LYMPH # 0.8 10^3/uL (1.5-5.0); LYMPH % 21.3 % (24.0-44.0); MONO # 0.4 10^3/uL (0.0-0.8); MONO % 10.2 % (2.0-8.0); NEUTROPHILS # 2.2 10^3/uL (1.5-8.5); NEUTROPHILS % 63.3 % (36.0-66.0); PLATELET COUNT, AUTOMATED 237 10^3/uL (150-450)
[2025-06-18 15:24] LABS: CALCIUM LEVEL 7.6 MG/DL (8.3-10.6); CARBON DIOXIDE LEVEL 26.0 MMOL/L (20-31); CHLORIDE LEVEL 93.0 MMOL/L (98-107); CREATININE FOR GFR 0.98 MG/DL (0.55-1.30); GLOMERULAR FILTRATION RATE 55.9 (>32); POTASSIUM SERUM 4.6 MMOL/L (3.5-5.1); SODIUM LEVEL 128.0 MMOL/L (136-145)
[2025-06-19 03:28] VITALS: BP 124/50; TEMP 97; O2SAT 95
[2025-06-19 06:28] LABS: PLATELET COUNT, AUTOMATED 187 10^3/uL (150-450)
[2025-06-19 06:51] LABS: CALCIUM LEVEL 7.7 MG/DL (8.3-10.6); CARBON DIOXIDE LEVEL 26.0 MMOL/L (20-31); CHLORIDE LEVEL 95.0 MMOL/L (98-107); CREATININE FOR GFR 0.98 MG/DL (0.55-1.30); GLOMERULAR FILTRATION RATE 55.9 (>32); POTASSIUM SERUM 4.8 MMOL/L (3.5-5.1); SODIUM LEVEL 130.0 MMOL/L (136-145)
[2025-06-19] MEDS: FUROSEMIDE 40 MG TAB PO SCH (08:32)
[2025-06-20 04:00] VITALS: BP 155/66; TEMP 97.3; O2SAT 96
[2025-06-20 06:49] LABS: PLATELET COUNT, AUTOMATED 176 10^3/uL (150-450)
[2025-06-20 07:11] LABS: CALCIUM LEVEL 7.4 MG/DL (8.3-10.6); CARBON DIOXIDE LEVEL 28.0 MMOL/L (20-31); CHLORIDE LEVEL 95.0 MMOL/L (98-107); CREATININE FOR GFR 0.96 MG/DL (0.55-1.30); GLOMERULAR FILTRATION RATE 57.3 (>32); POTASSIUM SERUM 4.3 MMOL/L (3.5-5.1); SODIUM LEVEL 129.0 MMOL/L (136-145)
[2025-06-20] MEDS: FLUZONE HIGH DOSE (65+) 0.5 ML SYRINGE (25-26) IM.IMMUN ONE (12:31)
[2025-06-20 19:54] VITALS: BP 135/82; TEMP 97.5; O2SAT 95
[2025-06-21 06:42] LABS: PLATELET COUNT, AUTOMATED 180 10^3/uL (150-450)
[2025-06-21 06:43] VITALS: BP 139/75; TEMP 97.5; O2SAT 96
[2025-06-21 07:15] LABS: CALCIUM LEVEL 7.8 MG/DL (8.3-10.6); CARBON DIOXIDE LEVEL 27.0 MMOL/L (20-31); CHLORIDE LEVEL 95.0 MMOL/L (98-107); CREATININE FOR GFR 0.95 MG/DL (0.55-1.30); GLOMERULAR FILTRATION RATE 58.0 (>32); POTASSIUM SERUM 4.5 MMOL/L (3.5-5.1); SODIUM LEVEL 130.0 MMOL/L (136-145)
[2025-06-21] MEDS: SENNA 8.6 MG TAB PO SCH (13:50)
[2025-06-22 04:00] VITALS: BP 157/66; TEMP 97.2; O2SAT 92
[2025-06-23 03:42] VITALS: BP 104/56; TEMP 97.5; O2SAT 94
[2025-06-24 05:51] VITALS: BP 135/62; TEMP 98.3; O2SAT 95
[2025-06-24 12:43] VITALS: BP 114/48
[2025-06-24 20:42] VITALS: BP 128/56
[2025-06-25 03:04] VITALS: BP 104/50; TEMP 97.9; O2SAT 95
[2025-06-25 08:58] VITALS: BP 98/52
[2025-06-26 06:40] VITALS: BP 120/60; TEMP 98.3; O2SAT 95
[2025-06-26 08:54] VITALS: BP 79/44; TEMP 97.6; O2SAT 95
[2025-06-27 03:29] VITALS: BP 110/48; TEMP 97.3; O2SAT 95
[2025-06-27 21:05] VITALS: BP 140/60
[2025-06-28 04:42] VITALS: BP 140/58; TEMP 98.8; O2SAT 95
[2025-06-28 21:14] VITALS: BP 120/48
[2025-06-29 04:08] VITALS: BP 120/50; TEMP 98.2; O2SAT 96
[2025-06-29 21:27] VITALS: BP 150/64
[2025-06-30 04:00] VITALS: BP 146/72; TEMP 98.3; O2SAT 94
[2025-06-30 08:49] VITALS: BP 120/46
[2025-06-30] MEDS ORDERED: SENN18TA PO (17:43)
[2025-06-30] MEDS ORDERED: METO1TAB7 PO (17:43)
[2025-06-30] MEDS ORDERED: MIDO5TA PO (17:43)
[2025-06-30] MEDS ORDERED: FURO40TA2 PO (17:43)
[2025-06-30] MEDS ORDERED: MOM30SS2 PO (17:43)
[2025-06-30 20:41] VITALS: BP 142/64
[2025-07-01 04:00] VITALS: BP 121/57; TEMP 97.1; O2SAT 96
[2025-07-01 09:47] VITALS: BP 134/60
== END 2025-07-01 12:00 ==
LOC: M ED 19:49 → M ED INP 19:50 → M MSPAV 05-29 03:03
PROVIDERS: ADMIT Student in an Organized Health Care Education/Training Program; ATTEND Internal Medicine
DX: M48.54XA Collapsed vertebra, not elsewhere classified, thoracic region, initial encounter for fracture (principal); S51.811A Laceration without foreign body of right forearm, initial encounter; Z86.73 Personal history of transient ischemic attack (TIA), and cerebral infarction without residual deficits; I11.0 Hypertensive heart disease with heart failure; I50.32 Chronic diastolic (congestive) heart failure; E78.5 Hyperlipidemia, unspecified; Z85.41 Personal history of malignant neoplasm of cervix uteri; I16.0 Hypertensive urgency; L30.4 Erythema intertrigo; M81.0 Age-related osteoporosis without current pathological fracture; E55.9 Vitamin D deficiency, unspecified; W18.11XA Fall from or off toilet without subsequent striking against object, initial encounter; Y92.002 Bathroom of unspecified non-institutional (private) residence as the place of occurrence of the external cause; R29.6 Repeated falls; E87.1 Hypo-osmolality and hyponatremia; R45.851 Suicidal ideations; I95.9 Hypotension, unspecified; F43.20 Adjustment disorder, unspecified; D61.818 Other pancytopenia; Z90.79 Acquired absence of other genital organ(s); Z98.49 Cataract extraction status, unspecified eye; R26.89 Other abnormalities of gait and mobility; Z87.891 Personal history of nicotine dependence; Z66 Do not resuscitate; Z79.899 Other long term (current) drug therapy; Z88.8 Allergy status to other drugs, medicaments and biological substances; Z23 Encounter for immunization
CPT/HCPCS: 36415; 70450; 71045; 72125; 72128; 72131; 73070; 74176; 80048; 80053; 81001; 82550; 83735; 83880; 85025; 85027; 85610; 85730; 87426; 90662; 90715; 93971; 96372; 96374; 96375; 97161; 97165; 97530; 99285; G0008; G0378; J0131; J1650; J1885